=== PATIENT | female | born 1945 | race Hispanic/Latino ===

== ENCOUNTER 2017-08-04 18:08 | Inpatient (IN) | payer MEDICARE ==
[2017-08-04] MEDS ORDERED: XYLOCAINE 1% 20 mL ONE (18:59)
[2017-08-04 19:48] LABS: Basophils % (Auto) 0.3 % (0.0-1.8); Eosinophils % (Auto) 0.5 % (0.0-4.3); Hemoglobin 13.2 gm/dl (10.1-14.3); Mean Corpuscular HGB Conc 32 % (30-34); Mean Corpuscular Hemoglobin 28 pg (28-32); Mean Corpuscular Volume 87 fl (79-97); Platelet Count 216 K/mm3 (140-440); Red Blood Count 4.71 M/mm3 (3.65-5.03); Red Cell Distribution Width 15.2 % (13.2-15.2); White Blood Count 14.1 K/mm3 (4.5-11.0)
[2017-08-04 20:07] LABS: Bilirubin,Total 4.2 mg/dL (0.1-1.2); Calcium 9.2 mg/dL (8.4-10.2); Total Protein 7.2 g/dL (6.3-8.2)
[2017-08-04 20:08] LABS: Albumin 4.1 g/dL (3.9-5); Albumin/Globulin Ratio 1.3 %; Chloride 98.2 mmol/L (98-107); Potassium 3.6 mmol/L (3.6-5.0)
--- NOTE | 2017-08-04 20:18 | Emergency Department Report ---
ED General Adult HPI - General Chief complaint: Abdominal Pain Stated complaint: ABD PAIN Time Seen by Provider: 08/04/17 19:05 Source: patient, family, EMS Mode of arrival: Stretcher Limitations: Physical Limitation - History of Present Illness Initial comments: Patient is a 71-year-old female status post lap band surgery presents with abdominal pain. Patient states abdominal pain occurred today. She states it's generalized and has progressively gotten worse. She also states that she has had some nausea and vomiting and also she had some lightheadedness. Patient states that abdominal pain is a 8 out 10 is an achy type of pain nothing makes it better or worse. She states it radiates throughout her belly. She denies having any chest pain or any shortness of breath. She called Dr. Hardin who did her lap band surgery he is currently at the bedside. - Related Data Home Medications Medication Instructions Recorded Confirmed Last Taken Apixaban [Eliquis] 5 mg PO Q12H 08/04/17 08/04/17 Unknown Benazepril HCl [Lotensin] 20 mg PO QDAY 08/04/17 08/04/17 Unknown Doxycycline [Vibramycin CAP] 100 mg PO Q12H 08/04/17 08/04/17 Unknown Duloxetine HCl [Cymbalta] 120 mg PO QDAY 08/04/17 08/04/17 Unknown HYDROcodone/APAP 10-325 [[place] 1 tab PO QDAY 08/04/17 08/04/17 Unknown 10-325 mg TAB] Hydrocortisone 1% [Hydrocortisone 1 applicatio TRANSDERMA PRN 08/04/17 08/04/17 Unknown 1% CREAM] Hydroxychloroquine [Plaquenil] 2 tab PO QHS 08/04/17 08/04/17 Unknown Metoprolol Xl [Metoprolol 50 mg PO QDAY 08/04/17 08/04/17 Unknown SUCCINATE ER TAB] Oxycodone HCl/Acetaminophen 1 - 2 tab PO Q4H PRN 08/04/17 08/04/17 Unknown [Percocet 10/325 mg] Tizanidine HCl [Zanaflex] 4 mg PO QHS PRN 08/04/17 08/04/17 Unknown traZODone [Desyrel] 100 mg PO QHS 08/04/17 08/04/17 Unknown Allergies Allergy/AdvReac Type Severity Reaction Status Date / Time cephalexin [From Keflex] Allergy Unknown Verified 08/04/17 19:00 ED Review of Systems ROS: Stated complaint: ABD PAIN Other details as noted in HPI Constitutional: denies: chills, fever Eyes: denies: eye pain, eye discharge, vision change ENT: denies: ear pain, throat pain Respiratory: denies: cough, shortness of breath, wheezing Cardiovascular: denies: chest pain, palpitations Endocrine: no symptoms reported Gastrointestinal: abdominal pain, nausea, vomiting. denies: diarrhea Genitourinary: denies: urgency, dysuria, discharge Musculoskeletal: denies: back pain, joint swelling, arthralgia Skin: denies: rash, lesions Neurological: weakness, other (lightheadedness ). denies: headache, paresthesias Psychiatric: denies: anxiety, depression Hematological/Lymphatic: denies: easy bleeding, easy bruising ED Past Medical Hx - Past Medical History Additional medical history: shoulder, hip replacement - Social History Smoking Status: Never Smoker - Medications Home Medications: Home Medications Medication Instructions Recorded Confirmed Last Taken Type Apixaban [Eliquis] 5 mg PO Q12H 08/04/17 08/04/17 Unknown History Benazepril HCl [Lotensin] 20 mg PO QDAY 08/04/17 08/04/17 Unknown History Doxycycline [Vibramycin CAP] 100 mg PO Q12H 08/04/17 08/04/17 Unknown History Duloxetine HCl [Cymbalta] 120 mg PO QDAY 08/04/17 08/04/17 Unknown History HYDROcodone/APAP 10-325 [[place] 1 tab PO QDAY 08/04/17 08/04/17 Unknown History 10-325 mg TAB] Hydrocortisone 1% [Hydrocortisone 1 applicatio TRANSDERMA PRN 08/04/17 08/04/17 Unknown History 1% CREAM] Hydroxychloroquine [Plaquenil] 2 tab PO QHS 08/04/17 08/04/17 Unknown History Metoprolol Xl [Metoprolol 50 mg PO QDAY 08/04/17 08/04/17 Unknown History SUCCINATE ER TAB] Oxycodone HCl/Acetaminophen 1 - 2 tab PO Q4H PRN 08/04/17 08/04/17 Unknown History [Percocet 10/325 mg] Tizanidine HCl [Zanaflex] 4 mg PO QHS PRN 08/04/17 08/04/17 Unknown History traZODone [Desyrel] 100 mg PO QHS 08/04/17 08/04/17 Unknown History ED Physical Exam - General Limitations: Physical Limitation General appearance: alert, in no apparent distress - Head Head exam: Present: atraumatic, normocephalic - Eye Eye exam: Present: normal appearance - ENT ENT exam: Present: mucous membranes moist - Neck Neck exam: Present: normal inspection - Respiratory Respiratory exam: Present: normal lung sounds bilaterally. Absent: respiratory distress - Cardiovascular Cardiovascular Exam: Present: regular rate, normal rhythm. Absent: systolic murmur, diastolic murmur, rubs, gallop - GI/Abdominal GI/Abdominal exam: Present: tenderness, hypoactive bowel sounds, other ( distended ) - Extremities Exam Extremities exam: Present: normal inspection - Back Exam Back exam: Present: normal inspection - Neurological Exam Neurological exam: Present: alert, oriented X3 - Psychiatric Psychiatric exam: Present: normal affect, normal mood - Skin Skin exam: Present: warm, dry, intact, normal color. Absent: rash ED Course Vital Signs 08/04/17 08/04/17 19:15 21:48 Temperature 99 F Pulse Rate 79 Respiratory 18 20 Rate Blood Pressure 127/51 [Left] O2 Sat by Pulse 100 Oximetry - Reevaluation(s) Reevaluation #1: 08/05/17 01:46 Patient is feeling better after IV pain medication. - Consultations Consultation #1: 08/04/17 18:31 is at bedside and is draining patient's lap band. Consultation #2: 08/05/17 01:32 Received a call from she states that she will see the patient in the morning and patient will need an inital 2 liter bolus of fluids and an ultrasound of her gallbladder in the morning. ED Medical Decision Making - Lab Data Result diagrams: 08/04/17 19:01 08/04/17 19:01 Lab Results 08/04/17 08/04/17 08/04/17 Range/Units 19:01 19:01 20:08 WBC 14.1 H (4.5-11.0) K/mm3 RBC 4.71 (3.65-5.03) M/mm3 Hgb 13.2 (10.1-14.3) gm/dl Hct 41.0 (30.3-42.9) % MCV 87 (79-97) fl MCH 28 (28-32) pg MCHC 32 (30-34) % RDW 15.2 (13.2-15.2) % Plt Count 216 (140-440) K/mm3 Lymph % (Auto) 4.9 L (13.4-35.0) % [place] % (Auto) 5.9 (0.0-7.3) % Eos % (Auto) 0.5 (0.0-4.3) % Baso % (Auto) 0.3 (0.0-1.8) % Lymph # 0.7 L (1.2-5.4) K/mm3 [place] # 0.8 (0.0-0.8) K/mm3 Eos # 0.1 (0.0-0.4) K/mm3 Baso # 0.0 (0.0-0.1) K/mm3 Seg Neutrophils % 88.4 H (40.0-70.0) % Seg Neutrophils # 12.5 H (1.8-7.7) K/mm3 Sodium 140 (137-145) mmol/L Potassium 3.6 (3.6-5.0) mmol/L Chloride 98.2 (98-107) mmol/L Carbon Dioxide 22 (22-30) mmol/L Anion Gap 23 mmol/L BUN 26 H (7-17) mg/dL Creatinine 1.3 H (0.7-1.2) mg/dL Estimated GFR 40 ml/min BUN/Creatinine Ratio 20 % Glucose 125 H (65-100) mg/dL Calcium 9.2 (8.4-10.2) mg/dL Total Bilirubin 4.20 H (0.1-1.2) mg/dL AST 327 H (5-40) units/L ALT 337 H (7-56) units/L Alkaline Phosphatase 204 H (35-129) units/L Total Protein 7.2 (6.3-8.2) g/dL Albumin 4.1 (3.9-5) g/dL Albumin/Globulin Ratio 1.3 % Lipase 2972 H (13-60) units/L Urine Color [place] (Yellow) Urine Turbidity Clear (Clear) Urine pH 5.0 (5.0-7.0) Ur Specific [place] 1.013 (1.003-1.030) Urine Protein 100 mg/dl (Negative) mg/dL Urine Glucose (UA) 50 (Negative) mg/dL Urine Ketones Neg (Negative) mg/dL Urine Blood Sm (Negative) Urine Nitrite Neg (Negative) Urine Bilirubin Neg (Negative) Urine Urobilinogen 4.0 (<2.0) mg/dL Ur Leukocyte Esterase Neg (Negative) Urine WBC (Auto) 7.0 H (0.0-6.0) /HPF Urine RBC (Auto) 2.0 (0.0-6.0) /HPF U Epithel Cells (Auto) 5.0 (0-13.0) /HPF Urine Bacteria (Auto) 4+ (Negative) /HPF Urine Mucus Few /HPF - Radiology Data Radiology results: report reviewed, image reviewed CT scan abdomen with oral contrast: The gallbladder is distended the sandy thickened there is pericholecystic fluid no stones are seen a calculus cholecystitis is suspected - Medical Decision Making Chief medical diagnosis: Cholecystitis Differential multiple diagnosis: Cholangitis, choledocholithiasis Ruptured viscus, pancreatitis, small bowel adhesion, ruptured lap band I will get CT scan with oral contrast, CBC, CMP, lipase, total bilirubin, IV fluids, IV antibiotics, IV pain medication, IV antiemetics CT scan is significant for a calculus cholecystitis I will place patient on IV antibiotics and IV fluids. Patient will be admitted to the hospital service. Patient will also require an ultrasound in the morning of her gallbladder. Since laboratory work is significant for elevated lipase which is significant for gallstone pancreatitis. Discussed with Dr. Melara she will see the patient the morning and see if patient needs any possible surgical intervention. Discussed plan with patient and patient agrees with plan Critical care attestation.: If time is entered above; I have spent that time in minutes in the direct care of this critically ill patient, excluding procedure time. ED Disposition Clinical Impression: Acalculous cholecystitis, Generalized abdominal pain, Acute gallstone pancreatitis Nausea and vomiting Qualifiers: Vomiting type: unspecified Vomiting Intractability: non-intractable Qualified Code(s): R11.2 - Nausea with vomiting, unspecified Disposition: OP ADMIT IP TO THIS HOSP Is pt being admited?: No Does the pt Need Aspirin: No Condition: Stable Instructions: Abdominal Pain (ED) Referrals: PRIMARY CARE, [Primary Care Provider] - 3-5 Days
[2017-08-04 20:21] LABS: Bacteria,Urine 4+ /HPF (Negative); Bilirubin,Urine NEG (Negative); Blood,Urine SM (Negative); Ketones,Urine NEG (Negative); Leukocyte Esterase,Urine NEG (Negative); Mucus,Urine FEW /HPF; Nitrite,Urine NEG (Negative)
[2017-08-04] MEDS ORDERED: ZOFRAN ODT PO ONE (20:45)
[2017-08-04] MEDS ORDERED: SUBLIMAZE IV ONE (21:21)
[2017-08-04] MEDS ORDERED: MORPHINE IV ONE (22:47)
[2017-08-04] MEDS ORDERED: MORPHINE ONE (22:54)
[2017-08-04] MEDS ORDERED: NACL 0.9% 1000 ML 1,000 ML IV ONE ×2 (23:04)
--- NOTE | 2017-08-04 23:48 | Cat Scan Report ---
FINAL REPORT PROCEDURE: CT ABDOMEN PELVIS WO CON TECHNIQUE: Computerized axial tomography of the abdomen and pelvis was performed without intravenous contrast. This study is performed without intravascular contrast material and its sensitivity for abdominal and pelvic pathology, including neoplasms, inflammation, abscess, free fluid, thrombosis, arterial dissection and infarction, is reduced compared with a contrast enhanced study. HISTORY: Generalized abd pain COMPARISON: 01/17/2016 FINDINGS: Visualized lower thorax: No significant abnormality. Liver: Normal size and attenuation. Spleen: Normal size and attenuation. Gallbladder and biliary system: The gallbladder is distended. The wall is thickened. There is pericholecystic fluid. No stones are seen. Acalculous cholecystitis is suspected.. Pancreas: There is peripancreatic edema suggesting possible pancreatitis. There is no intrinsic mass, abscess or pseudocyst.. Adrenals: Normal. Kidneys: There are no kidney stones or ureteral stones. There is no hydronephrosis.. GI tract: There is a constriction band at the gastroesophageal junction. There is mucosal thickening of the descending and transverse duodenum which could be secondary to pancreatitis. There is no obstruction. The colon and appendix are normal.. Lymph nodes and mesentery: Normal. Vasculature: Normal. Bladder: Normal. Reproductive organs: Uterus and ovaries are unremarkable.. Peritoneum: There is minimal free pelvic fluid. There is no free air.. Musculoskeletal structures: There is hip replacement hardware on the left.. Other: There has been ventral hernia repair surgery.. IMPRESSION: The gallbladder is distended. The wall is thickened. There is pericholecystic fluid. No stones are seen. Acalculous cholecystitis is suspected.. There is peripancreatic edema suggesting possible pancreatitis. There is no intrinsic mass, abscess or pseudocyst.. There are no kidney stones or ureteral stones. There is no hydronephrosis.. There is a constriction band at the gastroesophageal junction. There is mucosal thickening of the descending and transverse duodenum which could be secondary to pancreatitis. There is no obstruction. The colon and appendix are normal.. Uterus and ovaries are unremarkable.. There is minimal free pelvic fluid. There is no free air.. .
[2017-08-05] MEDS ORDERED: ROCEPHIN/NS 2 GM/100 ML 2 GM/100 ML BAG IV ONE (00:03)
[2017-08-05] MEDS ORDERED: FLAGYL 500 MG/100 ML 500 MG/100 ML BAG IV ONE (00:27)
[2017-08-05] MEDS ORDERED: MORPHINE IV ONE (00:46)
[2017-08-05] MEDS ORDERED: MORPHINE ONE ×2 (01:02)
[2017-08-05] MEDS ORDERED: FLAGYL 500 MG/100 ML 500 MG/100 ML BAG IV SCH ×2 (02:00→06:00)
[2017-08-05] MEDS ORDERED: MILK OF MAGNESIA PO PRN (03:02)
[2017-08-05] MEDS ORDERED: DULCOLAX PR PRN (03:02)
[2017-08-05] MEDS ORDERED: MORPHINE IV PRN (03:02)
[2017-08-05] MEDS ORDERED: ZOFRAN IV PRN (03:02)
[2017-08-05] MEDS ORDERED: TYLENOL PO PRN (03:02)
[2017-08-05] MEDS ORDERED: NACL 0.45% 1000 ML 1,000 ML IV SCH (04:00)
[2017-08-05] MEDS ORDERED: ZOFRAN ONE (04:44)
--- NOTE | 2017-08-05 05:06 | History and Physical Report ---
History of Present Illness Date of examination: 08/05/17 Date of admission: 08/05/17 03:02 History of present illness: 71-year-old woman history of hypertension, chronic kidney disease, lupus, anxiety, depression, A. fib cause emergency room with complaints of abdominal pain started 2 days ago. Pain is in the epigastric area which described as a sharp, dull pain, constant, intensity 8/10, radiating bilaterally to the sides, cannot identify exacerbating factor, better with pain medication. Admits to nausea and vomiting, unable to tolerate oral intake Review Of Systems: Constitutional: no weight loss Ears, eyes, nose, mouth and throat: no nasal congestion, no nasal discharge, no sinus pressure, blurry vision, diplopia Neck: No neck pain or rigidity. Cardiovascular:NO chest pain, orthopnea, palpitations Respiratory: No shortness of breath, cough Gastrointestinal: aNO hematochezia Genitourinary : no dysuria, frequency , hematuria Musculoskeletal: no muscle ache Integumentary: no rash, no pruritis Neurological: no parathesias, focal weakness Endocrine: no cold or heat intolerance, no polyuria or polydipsia Hematologic/Lymphatic: no easy bruising, no easy bleeding, no gland swelling Allergic/Immunologic: no urticaria, no angioedema. PAST MEDICAL HISTORY:hypertension, chronic kidney disease, lupus, anxiety, depression, A. fib PAST SURGICAL HISTORY: Bilateral knee replacement, hip surgery FAMILY HISTORY: Hypertension SOCIAL HISTORY: Denies alcohol, tobacco, urine Medications and Allergies Allergies Allergy/AdvReac Type Severity Reaction Status Date / Time cephalexin [From Keflex] Allergy Unknown Verified 08/04/17 19:00 Home Medications Medication Instructions Recorded Confirmed Last Taken Type Apixaban [Eliquis] 5 mg PO Q12H 08/04/17 08/04/17 Unknown History Benazepril HCl [Lotensin] 20 mg PO QDAY 08/04/17 08/04/17 Unknown History Doxycycline [Vibramycin CAP] 100 mg PO Q12H 08/04/17 08/04/17 Unknown History Duloxetine HCl [Cymbalta] 120 mg PO QDAY 08/04/17 08/04/17 Unknown History HYDROcodone/APAP 10-325 [[place] 1 tab PO QDAY 08/04/17 08/04/17 Unknown History 10-325 mg TAB] Hydrocortisone 1% [Hydrocortisone 1 applicatio TRANSDERMA PRN 08/04/17 08/04/17 Unknown History 1% CREAM] Hydroxychloroquine [Plaquenil] 2 tab PO QHS 08/04/17 08/04/17 Unknown History Metoprolol Xl [Metoprolol 50 mg PO QDAY 08/04/17 08/04/17 Unknown History SUCCINATE ER TAB] Oxycodone HCl/Acetaminophen 1 - 2 tab PO Q4H PRN 08/04/17 08/04/17 Unknown History [Percocet 10/325 mg] Tizanidine HCl [Zanaflex] 4 mg PO QHS PRN 08/04/17 08/04/17 Unknown History traZODone [Desyrel] 100 mg PO QHS 08/04/17 08/04/17 Unknown History Active Meds: Active Medications Acetaminophen (Tylenol) 650 mg PO Q4H PRN PRN Reason: Pain MILD(1-3)/Fever >100.5/CHAVEZ Bisacodyl (Dulcolax) 10 mg PA QDAY PRN PRN Reason: Constipation unrelieved by [facility] Metronidazole (Flagyl 500 Mg/100 Ml) 500 mg in 100 mls @ 100 mls/hr IV Q6H [facility] Last Admin: 08/05/17 02:00 Dose: 100 mls/hr Sodium Chloride (Nacl 0.45% 1000 Ml) 1,000 mls @ 75 mls/hr IV DIRECT SHARAN Ceftriaxone Sodium (Rocephin/Ns 1 Gm/50 Ml) 1 gm in 50 mls @ 100 mls/hr IV Q24H SHARAN PRN Reason: Protocol Magnesium Hydroxide (Milk Of Magnesia) 30 ml PO Q4H PRN PRN Reason: Constipation Morphine Sulfate (Morphine) 2 mg IV Q4H PRN PRN Reason: Pain, Moderate (4-6) Ondansetron HCl (Zofran) 4 mg IV Q8H PRN PRN Reason: N/V unrelieved by Reglan Exam - Physical Exam Narrative exam: Gen. appearance: Patient lying in bed in no acute distress HEENT: Normocephalic/atraumatic, pupils equal round reactive to light, extra alkaline movement intact, no scleral icterus, no JVD or thyromegaly or nodule, neck is supple, mucous membrane moist, no erythema or exudate Heart: S1-S2, regular rate and rhythm Lungs: Clear to auscultation bilateral breathing comfortable Abdomen: Positive bowel sounds, tender in right upper quadrant and epigastric area, nondistended, no organomegaly Extremities: No edema, cyanosis, clubbing Neuro:: Oriented 3 , cranial nerves II-12 intact, speech, motor intact Skin: No rash, nodules, warm dry - Constitutional Vitals: Temp Pulse Resp BP Pulse Ox 99 F 79 19 128/57 95 08/04/17 19:15 08/05/17 04:00 08/05/17 04:00 08/05/17 04:00 08/05/17 04:00 Results - Labs CBC & Chem 7: 08/04/17 19:01 08/04/17 19:01 - Imaging and Cardiology CT scan - abdomen: report reviewed CT scan - pelvis: report reviewed Assessment and Plan Assessment Acute cholecystitis Hypertension A. fib Anxiety Depression Chronic kidney disease Lupus Plan Admit to medicine Placed on bowel rest, start IV fluids, IV antibiotic Consult surgery HOld eliquis prior to surgery Continue appropriate outpatient medications DVT prophylaxis
[2017-08-05] MEDS: NACL 0.9% 1000 ML 1,000 ML IV SCH ×3 (09:07→20:03)
[2017-08-05] MEDS: TOPROL XL PO SCH (09:09)
[2017-08-05] MEDS: CYMBALTA PO SCH (09:09)
--- NOTE | 2017-08-05 09:17 | Consultation ---
History of Present Illness Consult date: 08/05/17 Reason for consult: abdominal pain Chief complaint: abdominal pain - History of present illness History of present illness: 71 y/o obese female with a history of lap band, ventral hernia repair presents to emergency room with c/o epigastric abdominal pain that started 2 days prior. The patient states the pain is severe, radiates across the abdomen. It is exacerbated by drinking and eating. The pain has gradually gotten worse. It was associated with nonbloody/nonbilious emesis which has since improved. She denies constipation, diarrhea, fevers, chills, CP, SOB. She has never had symptoms like this before. Her lap band was recently assessed by Dr. Galvez and all fluid removed. She does not drink etoh and has not had recent medication changes. Past History Past Medical History: atrial fib, arthritis, CAD, hypertension, other (obesity, sleep apnea, LUpus) Past Surgical History: hernia repair, total hip replacement (left), total knee replacement (bilateral), Other (tubal ligation, lap band) Social history: no significant social history Family history: CAD, cancer, hypertension Medications and Allergies Allergies Allergy/AdvReac Type Severity Reaction Status Date / Time cephalexin [From Keflex] Allergy Unknown Verified 08/04/17 19:00 Home Medications Medication Instructions Recorded Confirmed Last Taken Type Apixaban [Eliquis] 5 mg PO Q12H 08/04/17 08/04/17 Unknown History Benazepril HCl [Lotensin] 20 mg PO QDAY 08/04/17 08/04/17 Unknown History Doxycycline [Vibramycin CAP] 100 mg PO Q12H 08/04/17 08/04/17 Unknown History Duloxetine HCl [Cymbalta] 120 mg PO QDAY 08/04/17 08/04/17 Unknown History HYDROcodone/APAP 10-325 [[place] 1 tab PO QDAY 08/04/17 08/04/17 Unknown History 10-325 mg TAB] Hydrocortisone 1% [Hydrocortisone 1 applicatio TRANSDERMA PRN 08/04/17 08/04/17 Unknown History 1% CREAM] Hydroxychloroquine [Plaquenil] 2 tab PO QHS 08/04/17 08/04/17 Unknown History Metoprolol Xl [Metoprolol 50 mg PO QDAY 08/04/17 08/04/17 Unknown History SUCCINATE ER TAB] Oxycodone HCl/Acetaminophen 1 - 2 tab PO Q4H PRN 08/04/17 08/04/17 Unknown History [Percocet 10/325 mg] Tizanidine HCl [Zanaflex] 4 mg PO QHS PRN 08/04/17 08/04/17 Unknown History traZODone [Desyrel] 100 mg PO QHS 08/04/17 08/04/17 Unknown History Active Meds: Active Medications Acetaminophen (Tylenol) 650 mg PO Q4H PRN PRN Reason: Pain MILD(1-3)/Fever >100.5/CHAVEZ Duloxetine HCl (Cymbalta) 120 mg PO QDAY ON LICENSE OF [facility] Last Admin: 08/05/17 09:09 Dose: Not Given Hydroxychloroquine Sulfate (Plaquenil) 400 mg PO QHS ON LICENSE OF [facility] Sodium Chloride (Nacl 0.9% 1000 Ml) 1,000 mls @ 200 mls/hr IV DIRECT ON LICENSE OF [facility] Last Admin: 08/05/17 09:07 Dose: 200 mls/hr Piperacillin Sod/Tazobactam Sod (Zosyn/Ns 3.375gm/50ml) 3.375 gm in 50 mls @ 100 mls/hr IV Q8HR ON LICENSE OF [facility] PRN Reason: Protocol Magnesium Hydroxide (Milk Of Magnesia) 30 ml PO Q4H PRN PRN Reason: Constipation Metoprolol Succinate (Toprol Xl) 50 mg PO QDAY ON LICENSE OF [facility] Last Admin: 08/05/17 09:09 Dose: Not Given Morphine Sulfate (Morphine) 2 mg IV Q4H PRN PRN Reason: Pain, Moderate (4-6) Last Admin: 08/05/17 06:12 Dose: 2 mg Ondansetron HCl (Zofran) 4 mg IV Q8H PRN PRN Reason: N/V unrelieved by Reglan Last Admin: 08/05/17 04:40 Dose: 4 mg Review of Systems All systems: negative (see HPI) Exam Vital Signs Temp Pulse Resp BP Pulse Ox 99 F 79 18 127/51 100 08/04/17 19:15 08/04/17 19:15 08/04/17 19:15 08/04/17 19:15 08/04/17 19:15 Narrative exam: General: AAOx3. NAD HEENT: no scleral icterus CV: S1, S2+, no m/r/g Resp: CTAB, no w/r/r Abd: soft, obese, ND. +ttp greatest in epigastrum, +ttp in ruq. No r/r/g. well healed surgical scars Ext: trace b/l LE pedal edema Results - Labs 08/04/17 19:01 08/04/17 19:01 - Imaging CT scan - abdomen: report reviewed (Pancreatitis, distended and thickened gallbladder with pericholecystic fluid), image reviewed CT scan - pelvis: report reviewed, image reviewed Assessment and Plan 71 yo F with pancreatitis, most likely secondary to gallbladder 1. pancreatitis 2. cholecystitis 3. obesity 4. Afib 5. sleep apnea Plan: 1. Pt admitted to medical service 2. needs aggressive IVF hydration - change fluid to NS@200cc/hr 3. NPO -> may have mouth swabs 4. STAT CBC, CMP, lipase, amylase -> trend labs daily 5. STAT RUQ u/s 6. activity as tolerated 7. pain control PRN - morphine 8. change abx to zosyn 9. STOP eliquis - last dose 08/04 AM 10. strict I/Os 11. Consult to cardiology for hx afib, preop risk assessment 12. Consult to GI for likely gallstone pancreatitis 13. DVT ppx - SQH (to start tonight) and SCDs 14. Activity as tolerated 15. PICC consult - inadequate IV access and hard IV stick, will need serial labs
[2017-08-05] MEDS ORDERED: ELIQUIS PO SCH (10:00)
[2017-08-05] MEDS ORDERED: NON-FORMULARY (Duloxetine Hcl [Cymbalta] 120 MG) PO SCH (10:00)
[2017-08-05] MEDS ORDERED: LEVAQUIN 750MG/150ML 750 MG/150 ML BAG IV SCH (10:00)
[2017-08-05 10:49] LABS: Basophils % (Auto) 0.4 % (0.0-1.8); Eosinophils % (Auto) 0.6 % (0.0-4.3); Hematocrit 33.8 % (30.3-42.9); Hemoglobin 11.6 gm/dl (10.1-14.3); Mean Corpuscular HGB Conc 34 % (30-34); Mean Corpuscular Hemoglobin 29 pg (28-32); Mean Corpuscular Volume 86 fl (79-97); Platelet Count 152 K/mm3 (140-440); Red Blood Count 3.95 M/mm3 (3.65-5.03); Red Cell Distribution Width 15.2 % (13.2-15.2); White Blood Count 8.2 K/mm3 (4.5-11.0)
[2017-08-05] MEDS: MORPHINE IV PRN ×2 (10:54→17:38)
[2017-08-05] MEDS: ZOSYN/NS 3.375GM/50ML 3.375 GM/50 ML BAG IV SCH ×3 (11:23→21:49)
[2017-08-05 11:24] LABS: Albumin 3.3 g/dL (3.9-5); Albumin/Globulin Ratio 1.1 %; Bilirubin,Total 3.9 mg/dL (0.1-1.2); Calcium 8.3 mg/dL (8.4-10.2); Chloride 106.1 mmol/L (98-107); Potassium 4.3 mmol/L (3.6-5.0); Total Protein 6.3 g/dL (6.3-8.2)
[2017-08-05 11:26] LABS: Bilirubin,Direct 3.4 mg/dL (0-0.2); Bilirubin,Indirect 0.5 mg/dL; Bilirubin,Total 3.9 mg/dL (0.1-1.2)
--- NOTE | 2017-08-05 11:30 | Consultation ---
History of Present Illness Consult date: 08/05/17 Requesting physician: YARITZA COLE Consult reason: pre op evaluation History of present illness: The patient is followed by Dr. Laird in our office. She has a history of moderate aortic stenosis and paroxysmal atrial fibrillation as well as nonobstructive coronary disease. In November 2016, coronary angiography revealed mild nonobstructive CAD. In March 2017, she underwent a lap band procedure. Three days ago, she started experiencing nausea, vomiting and abdominal pain. She claims that on the first day of symptoms, she also experienced a lower substernal chest pain for a while. CT scan of the abdomen revealed findings suggestive of cholecystitis and pancreatitis. LFTs and lipase are significantly elevated. Past History Past Medical History: atrial fib (paroxysmal), CAD (mild nonobstructive documented on coronary angiography in November 2016), hypertension, other ( morbid obesity, obstructive sleep apnea lupus, moderate aortic stenosis, normal LV systolic function on echocardiogram earlier dysuria.) Past Surgical History: hernia repair, total hip replacement, total knee replacement (bilateral), Other (tubal ligation, lap band) Social history: denies: smoking, alcohol abuse Family history: CAD, cancer, hypertension Medications and Allergies Allergies Allergy/AdvReac Type Severity Reaction Status Date / Time cephalexin [From Keflex] Allergy Unknown Verified 08/04/17 19:00 Home Medications Medication Instructions Recorded Confirmed Last Taken Type Apixaban [Eliquis] 5 mg PO Q12H 08/04/17 08/04/17 Unknown History Benazepril HCl [Lotensin] 20 mg PO QDAY 08/04/17 08/04/17 Unknown History Doxycycline [Vibramycin CAP] 100 mg PO Q12H 08/04/17 08/04/17 Unknown History Duloxetine HCl [Cymbalta] 120 mg PO QDAY 08/04/17 08/04/17 Unknown History HYDROcodone/APAP 10-325 [Benoit 1 tab PO QDAY 08/04/17 08/04/17 Unknown History 10-325 mg TAB] Hydrocortisone 1% [Hydrocortisone 1 applicatio TRANSDERMA PRN 08/04/17 08/04/17 Unknown History 1% CREAM] Hydroxychloroquine [Plaquenil] 2 tab PO QHS 08/04/17 08/04/17 Unknown History Metoprolol Xl [Metoprolol 50 mg PO QDAY 08/04/17 08/04/17 Unknown History SUCCINATE ER TAB] Oxycodone HCl/Acetaminophen 1 - 2 tab PO Q4H PRN 08/04/17 08/04/17 Unknown History [Percocet 10/325 mg] Tizanidine HCl [Zanaflex] 4 mg PO QHS PRN 08/04/17 08/04/17 Unknown History traZODone [Desyrel] 100 mg PO QHS 08/04/17 08/04/17 Unknown History Active Meds: Active Medications Acetaminophen (Tylenol) 650 mg PO Q4H PRN PRN Reason: Pain MILD(1-3)/Fever >100.5/CHAVEZ Duloxetine HCl (Cymbalta) 120 mg PO QDAY [facility] Last Admin: 08/05/17 09:09 Dose: Not Given Heparin Sodium (Porcine) (Heparin) 5,000 unit SUB-Q Q8HR [facility] Hydroxychloroquine Sulfate (Plaquenil) 400 mg PO QHS [facility] Sodium Chloride (Nacl 0.9% 1000 Ml) 1,000 mls @ 200 mls/hr IV DIRECT [facility] Last Admin: 08/05/17 09:07 Dose: 200 mls/hr Piperacillin Sod/Tazobactam Sod (Zosyn/Ns 3.375gm/50ml) 3.375 gm in 50 mls @ 100 mls/hr IV Q8HR [facility] PRN Reason: Protocol Magnesium Hydroxide (Milk Of Magnesia) 30 ml PO Q4H PRN PRN Reason: Constipation Metoprolol Succinate (Toprol Xl) 50 mg PO QDAY [facility] Last Admin: 08/05/17 09:09 Dose: Not Given Morphine Sulfate (Morphine) 2 mg IV Q3H PRN PRN Reason: Pain, Moderate (4-6) Last Admin: 08/05/17 10:54 Dose: 2 mg Ondansetron HCl (Zofran) 4 mg IV Q8H PRN PRN Reason: N/V unrelieved by Regamber Last Admin: 08/05/17 04:40 Dose: 4 mg Review of Systems Constitutional: no fever, no chills Ears, nose, mouth and throat: no ear pain, no ear discharge, no sore throat Cardiovascular: no chest pain, no palpitations, no edema, no lightheadedness, no shortness of breath Respiratory: no cough, no hemoptysis, no shortness of breath Gastrointestinal: abdominal pain, nausea, vomiting, no diarrhea, no constipation Genitourinary Female: dysuria, urinary frequency Rectal: no pain, no bleeding Musculoskeletal: no neck stiffness, no neck pain, no myalgias Integumentary: no rash, no pruritis Neurological: no weakness, no parathesias, no numbness, no headaches Endocrine: no cold intolerance, no heat intolerance Hematologic/Lymphatic: no easy bruising, no easy bleeding Allergic/Immunologic: no urticaria, no wheezing Physical Examination Vital Signs Last Vital Signs Temp 98.8 F 08/05/17 07:04 Pulse 80 08/05/17 07:04 Resp 16 08/05/17 07:04 BP 138/57 08/05/17 07:04 Pulse Ox 96 08/05/17 10:00 General appearance: mild distress HEENT: Positive: EOMI, Normocephaly, Mucus Membranes Moist Neck: Positive: neck supple, trachea midline Cardiac: Positive: Reg Rate and Rhythm, S1/S2, Systolic Murmur Lungs: Positive: clear to auscultation Neuro: Positive: Grossly Intact Abdomen: Positive: Soft, Active Bowel Sounds, Tender Skin: Positive: Clear. Negative: Rash Musculoskeletal: Normal Range of Motion Extremities: Present: normal. Absent: edema Results 08/05/17 10:26 08/05/17 10:26 Cardiac Enzymes 08/05/17 Range/Units 10: AST 194 H (5-40) units/L CBC 08/05/17 Range/Units 10:26 WBC 8.2 (4.5-11.0) K/mm3 RBC 3.95 (3.65-5.03) M/mm3 Hgb 11.6 (10.1-14.3) gm/dl Hct 33.8 D (30.3-42.9) % Plt Count 152 (140-440) K/mm3 Lymph # 0.9 L (1.2-5.4) K/mm3 [place] # 0.6 (0.0-0.8) K/mm3 Eos # 0.1 (0.0-0.4) K/mm3 Baso # 0.0 (0.0-0.1) K/mm3 Comprehensive Metabolic Panel 08/05/17 Range/Units 10:26 Sodium 145 (137-145) mmol/L Potassium 4.3 (3.6-5.0) mmol/L Chloride 106.1 (98-107) mmol/L Carbon Dioxide 22 (22-30) mmol/L BUN 30 H (7-17) mg/dL Creatinine 1.6 H (0.7-1.2) mg/dL Glucose 115 H (65-100) mg/dL Calcium 8.3 L (8.4-10.2) mg/dL AST 194 H (5-40) units/L ALT 269 H (7-56) units/L Alkaline Phosphatase 178 H (35-129) units/L Total Protein 6.3 (6.3-8.2) g/dL Albumin 3.3 L (3.9-5) g/dL - Imaging and Cardiology EKG: pending Assessment and Plan Her cardiac surgical risk is moderately increased due to her comorbid and underlying cardiac diseases. However, she appears stable from a cardiac standpoint to proceed with cholecystectomy if necessary. - Patient Problems (1) Preop cardiovascular exam Current Visit: Yes Status: Acute (2) Acute pancreatitis Current Visit: Yes Status: Acute Qualifiers: Pancreatitis type: P Acute pancreatitis complication: A (3) Acalculous cholecystitis Current Visit: Yes Status: Acute (4) Aortic stenosis, moderate Current Visit: Yes Status: Acute (5) Mild coronary artery disease Current Visit: Yes Status: Acute (6) Hypertension Current Visit: Yes Status: Acute Qualifiers: Hypertension type: H (7) Paroxysmal atrial fibrillation Current Visit: Yes Status: Acute (8) Obstructive sleep apnea Current Visit: Yes Status: Acute (9) H/O systemic lupus erythematosus (SLE) Current Visit: Yes Status: Acute (10) Morbid obesity Current Visit: Yes Status: Acute
--- NOTE | 2017-08-05 11:43 | Gastroenterology Consultation ---
<MARIA G MOSS - Last Filed: 08/05/17 12:01> History of Present Illness - Reason for Consult Consult date: 08/05/17 possible gallstone pancreatitis Requesting physician: JOSE E WU - History of Present Illness Patient is a 71 y/o female with PMH of HTN, CKD, lupus, A-fib (last dose of Eliquis 07/25/17), CAD, aortic stenosis, obesity, and recent lap band (assessed by Dr. Galvez recently with all fluid removed) who presented to the ER with c/o epigastric abd pain that radiate across her abdomen and N/V with symptoms exacerbated by drinking or eating x 2 days. On admission LFTs and lipase were noted to be significantly elevated. Abd CT revealed cholecystitis and pancreatitis. GI has been consulted for possible gallstone pancreatitis. Abd U/ S results are pending. This am pt resting in bed. Family at bedside. Patient denies any previous episodes like this before. No ETOH use or hx of liver disease. She described abd pain as predominately in epigastric area that radiates to RUQ and LUQ. She continues to have episodes of N/V with non-bloody emesis this am. Denies fever, CP, SOB, jaundice, diarrhea, constipation, or signs of bleeding. Past History Past Medical History: atrial fib (paroxysmal), CAD (mild nonobstructive documented on coronary angiography in November 2016), hypertension, other ( morbid obesity, obstructive sleep apnea lupus, moderate aortic stenosis, normal LV systolic function on echocardiogram earlier dysuria.) Past Surgical History: hernia repair, total hip replacement, total knee replacement (bilateral), Other (tubal ligation, lap band) Social history: denies: smoking, alcohol abuse Family history: CAD, cancer, hypertension Medications and Allergies Allergies Allergy/AdvReac Type Severity Reaction Status Date / Time cephalexin [From Keflex] Allergy Unknown Verified 08/04/17 19:00 Home Medications Medication Instructions Recorded Confirmed Last Taken Type Apixaban [Eliquis] 5 mg PO Q12H 08/04/17 08/04/17 Unknown History Benazepril HCl [Lotensin] 20 mg PO QDAY 08/04/17 08/04/17 Unknown History Doxycycline [Vibramycin CAP] 100 mg PO Q12H 08/04/17 08/04/17 Unknown History Duloxetine HCl [Cymbalta] 120 mg PO QDAY 08/04/17 08/04/17 Unknown History HYDROcodone/APAP 10-325 [Bath 1 tab PO QDAY 08/04/17 08/04/17 Unknown History 10-325 mg TAB] Hydrocortisone 1% [Hydrocortisone 1 applicatio TRANSDERMA PRN 08/04/17 08/04/17 Unknown History 1% CREAM] Hydroxychloroquine [Plaquenil] 2 tab PO QHS 08/04/17 08/04/17 Unknown History Metoprolol Xl [Metoprolol 50 mg PO QDAY 08/04/17 08/04/17 Unknown History SUCCINATE ER TAB] Oxycodone HCl/Acetaminophen 1 - 2 tab PO Q4H PRN 08/04/17 08/04/17 Unknown History [Percocet 10/325 mg] Tizanidine HCl [Zanaflex] 4 mg PO QHS PRN 08/04/17 08/04/17 Unknown History traZODone [Desyrel] 100 mg PO QHS 08/04/17 08/04/17 Unknown History Active Meds: Active Medications Acetaminophen (Tylenol) 650 mg PO Q4H PRN PRN Reason: Pain MILD(1-3)/Fever >100.5/CHAVEZ Duloxetine HCl (Cymbalta) 120 mg PO QDAY [facility] Last Admin: 08/05/17 09:09 Dose: Not Given Heparin Sodium (Porcine) (Heparin) 5,000 unit SUB-Q Q8HR [facility] Hydroxychloroquine Sulfate (Plaquenil) 400 mg PO QHS [facility] Sodium Chloride (Nacl 0.9% 1000 Ml) 1,000 mls @ 200 mls/hr IV DIRECT [facility] Last Admin: 08/05/17 09:07 Dose: 200 mls/hr Piperacillin Sod/Tazobactam Sod (Zosyn/Ns 3.375gm/50ml) 3.375 gm in 50 mls @ 100 mls/hr IV Q8HR [facility] PRN Reason: Protocol Last Admin: 08/05/17 11:23 Dose: 100 mls/hr Magnesium Hydroxide (Milk Of Magnesia) 30 ml PO Q4H PRN PRN Reason: Constipation Metoprolol Succinate (Toprol Xl) 50 mg PO QDAY [facility] Last Admin: 08/05/17 09:09 Dose: Not Given Morphine Sulfate (Morphine) 2 mg IV Q3H PRN PRN Reason: Pain, Moderate (4-6) Last Admin: 08/05/17 10:54 Dose: 2 mg Ondansetron HCl (Zofran) 4 mg IV Q8H PRN PRN Reason: N/V unrelieved by Mike Last Admin: 08/05/17 04:40 Dose: 4 mg Review of Systems - Review of Systems All systems: negative Gastrointestinal: abdominal pain, nausea, vomiting Exam - Constitutional Vital Signs: Temp Pulse Resp BP Pulse Ox 98.8 F 80 16 138/57 96 08/05/17 07:04 08/05/17 07:04 08/05/17 07:04 08/05/17 07:04 08/05/17 10:00 General appearance: mild distress, obese - EENT Eyes: PERRL, EOM intact ENT: hearing intact - Respiratory Respiratory: bilateral: CTA (anterior) - Cardiovascular Rhythm: regular Heart Sounds: Present: S1 & S2 Extremities: No edema - Gastrointestinal General gastrointestinal: Present: soft, tender (generalized TTP but worse in epigastric/RUQ/LUQ) - Integumentary Integumentary: Present: warm, dry - Neurologic Neurological: alert and oriented x3 - Labs CBC & Chem 7: 08/05/17 10:26 08/05/17 10:26 Lab Results: Laboratory Results - last 24 hr 08/05/17 08/05/17 08/05/17 10:26 10:26 10:26 WBC 8.2 RBC 3.95 Hgb 11.6 Hct 33.8 D MCV 86 MCH 29 MCHC 34 RDW 15.2 Plt Count 152 Lymph % (Auto) 10.6 L [place] % (Auto) 7.3 Eos % (Auto) 0.6 Baso % (Auto) 0.4 Lymph # 0.9 L [place] # 0.6 Eos # 0.1 Baso # 0.0 Seg Neutrophils % 81.1 H Seg Neutrophils # 6.7 Sodium 145 Potassium 4.3 Chloride 106.1 Carbon Dioxide 22 Anion Gap 21 BUN 30 H Creatinine 1.6 H Estimated GFR 32 BUN/Creatinine Ratio 19 Glucose 115 H Calcium 8.3 L Total Bilirubin 3.90 H 3.90 H Direct Bilirubin 3.4 H Indirect Bilirubin 0.5 AST 194 H ALT 269 H Alkaline Phosphatase 178 H Total Protein 6.3 Albumin 3.3 L Albumin/Globulin Ratio 1.1 Amylase 812 H Assessment and Plan 1.possible gallstone pancreatitis 2.acute pancreatitis 3.cholecystitis 4.A-fib 5.aortic stenosis 6.obesity 7.lupus -afebrile -WBC 8.2-trended down from 14.1 yesterday -T.cynthia 3.90, AST 194, ALT 269, Alk phos 178-trending down -lipase 2972 yesterday-pending for today -abd CT revealed pancreatitis and cholecystitis -pt with no h/o ETOH use-etiology possibly 2/2 gallstone -abd U/S results -pending -will order triglyceride level -keep NPO -continue supportive care -further recommendations to follow <CHING MA R - Last Filed: 08/05/17 18:15> Medications and Allergies Active Meds: Active Medications Acetaminophen (Tylenol) 650 mg PO Q4H PRN PRN Reason: Pain MILD(1-3)/Fever >100.5/CHAVEZ Duloxetine HCl (Cymbalta) 120 mg PO QDAY [facility] Last Admin: 08/05/17 09:09 Dose: Not Given Heparin Sodium (Porcine) (Heparin) 5,000 unit SUB-Q Q8HR [facility] Hydroxychloroquine Sulfate (Plaquenil) 400 mg PO QHS [facility] Sodium Chloride (Nacl 0.9% 1000 Ml) 1,000 mls @ 200 mls/hr IV DIRECT [facility] Last Admin: 08/05/17 15:09 Dose: 200 mls/hr Piperacillin Sod/Tazobactam Sod (Zosyn/Ns 3.375gm/50ml) 3.375 gm in 50 mls @ 100 mls/hr IV Q8HR [facility] PRN Reason: Protocol Last Admin: 08/05/17 13:56 Dose: 100 mls/hr Magnesium Hydroxide (Milk Of Magnesia) 30 ml PO Q4H PRN PRN Reason: Constipation Metoprolol Succinate (Toprol Xl) 50 mg PO QDAY [facility] Last Admin: 08/05/17 09:09 Dose: Not Given Morphine Sulfate (Morphine) 2 mg IV Q3H PRN PRN Reason: Pain, Moderate (4-6) Last Admin: 08/05/17 17:38 Dose: 2 mg Ondansetron HCl (Zofran) 4 mg IV Q8H PRN PRN Reason: N/V unrelieved by Miek Last Admin: 08/05/17 04:40 Dose: 4 mg Exam - Constitutional Vital Signs: Temp Pulse Resp BP Pulse Ox 98.2 F 69 20 144/55 97 08/05/17 14:22 08/05/17 14:22 08/05/17 14:22 08/05/17 14:22 08/05/17 14:22 - Labs CBC & Chem 7: 08/05/17 10:26 08/05/17 10:26 Lab Results: Laboratory Results - last 24 hr 08/05/17 08/05/17 08/05/17 10:26 10:26 10:26 WBC 8.2 RBC 3.95 Hgb 11.6 Hct 33.8 D MCV 86 MCH 29 MCHC 34 RDW 15.2 Plt Count 152 Lymph % (Auto) 10.6 L [place] % (Auto) 7.3 Eos % (Auto) 0.6 Baso % (Auto) 0.4 Lymph # 0.9 L [place] # 0.6 Eos # 0.1 Baso # 0.0 Seg Neutrophils % 81.1 H Seg Neutrophils # 6.7 Sodium 145 Potassium 4.3 Chloride 106.1 Carbon Dioxide 22 Anion Gap 21 BUN 30 H Creatinine 1.6 H Estimated GFR 32 BUN/Creatinine Ratio 19 Glucose 115 H Calcium 8.3 L Total Bilirubin 3.90 H 3.90 H Direct Bilirubin 3.4 H Indirect Bilirubin 0.5 AST 194 H ALT 269 H Alkaline Phosphatase 178 H Total Protein 6.3 Albumin 3.3 L Albumin/Globulin Ratio 1.1 Amylase 812 H Lipase 1929 H Assessment and Plan U/S shows GB sludge, and mildly dilated CBD to 7.8 mm. Pt feels significantly better. Imp - likely gallstone pancreatitis - 70% of the time, CBD stone passes spontaneously. Rec - Will get MRCP - if unable, and pt continues to improve along with LFTs, can do CCX with IOC, and possibly subsequent ERCP. Otherwise, will need preop ERCP. Discussed with pt and daughter.
--- NOTE | 2017-08-05 14:22 | Event Note ---
Date: 08/05/17 Patient was seen and evaluated this morning, No fever, abdominal pain is getting better. No fever,chills, patient is NPO. Surgery was consulted and will do cholecystectomy.
--- NOTE | 2017-08-05 14:34 | XRay Report ---
PORTABLE CHEST INDICATION: Left arm PICC placement. COMPARISON: None similar. FINDINGS: Portable, frontal chest radiograph demonstrates left upper extremity PICC tip along the distal SVC. Slight cardiomegaly. Clear lungs. Right hemidiaphragm minimally elevated. Bilateral shoulder and multilevel spinal degenerative changes. CONCLUSION: Satisfactory PICC placement. No acute chest process. Thank you for the opportunity to participate in this patient's care.
--- NOTE | 2017-08-05 14:42 | Ultrasound Report ---
RIGHT UPPER QUADRANT ULTRASOUND: HISTORY: Pancreatitis, abdominal pain. Technique: Transabdominal ultrasound imaging with Doppler interrogation. FINDINGS: The liver is normal size, contour and echotexture. No focal liver mass or surface nodularity. No perihepatic ascites. A mild degree of sludge is suspected in the gallbladder. No shadowing gallstones are appreciated. The gallbladder is not distended. The common bile duct is mildly dilated measuring 7.3 mm. No choledocholithiasis is appreciated on ultrasound. The pancreatic head and neck are grossly normal. The distal pancreas is obscured. The proximal aorta is normal caliber. The right kidney is within normal limits measuring 11 cm in length. IMPRESSION: Mild degree of sludge in the gallbladder. No calcified gallstones. The common bile duct is mildly dilated measuring 7.3 mm. Choledocholithiasis or sludge the distal common bile duct cannot be excluded.
[2017-08-05] MEDS: HEPARIN SUB-Q SCH (21:50)
[2017-08-05] MEDS: PLAQUENIL PO SCH (21:57)
[2017-08-05] MEDS ORDERED: ROCEPHIN/NS 1 GM/50 ML 1 GM/50 ML BAG IV SCH (22:00)
[2017-08-06] MEDS: MORPHINE IV PRN ×2 (00:15→05:49)
[2017-08-06] MEDS ORDERED: APRESOLINE IV PRN (00:27)
[2017-08-06] MEDS: NACL 0.9% 1000 ML 1,000 ML IV SCH ×3 (00:39→19:56)
[2017-08-06] MEDS: ATIVAN IV PRN ×2 (01:58→09:23)
[2017-08-06 03:58] LABS: Basophils % (Auto) 0.4 % (0.0-1.8); Eosinophils % (Auto) 0.8 % (0.0-4.3); Hematocrit 33.1 % (30.3-42.9); Hemoglobin 11.1 gm/dl (10.1-14.3); Mean Corpuscular HGB Conc 34 % (30-34); Mean Corpuscular Hemoglobin 29 pg (28-32); Mean Corpuscular Volume 87 fl (79-97); Platelet Count 145 K/mm3 (140-440); Red Blood Count 3.78 M/mm3 (3.65-5.03); Red Cell Distribution Width 15.1 % (13.2-15.2); White Blood Count 6.9 K/mm3 (4.5-11.0)
[2017-08-06 04:21] LABS: Albumin 3.1 g/dL (3.9-5); Albumin/Globulin Ratio 1.1 %; Bilirubin,Direct 3.7 mg/dL (0-0.2); Bilirubin,Indirect 0.6 mg/dL; Bilirubin,Total 4.3 mg/dL (0.1-1.2); Calcium 8.3 mg/dL (8.4-10.2); Chloride 110.2 mmol/L (98-107); Potassium 3.8 mmol/L (3.6-5.0)
[2017-08-06] MEDS: ZOSYN/NS 3.375GM/50ML 3.375 GM/50 ML BAG IV SCH ×3 (05:48→22:35)
[2017-08-06] MEDS: HEPARIN SUB-Q SCH ×3 (05:49→22:34)
--- NOTE | 2017-08-06 09:42 | Progress Note ---
Assessment and Plan 71 y/o F with abdominal pain 1. gallstone pancreatitis 2. obesity 3. afib Plan: 1. continue NPO today, may have ice chips and mouth swabs 2. continue IV - NS 3. LFTs, lipase, amylase improving - continue to trend daily 4. Total and direct bilirubin remain elevated, RUQ u/s reviewed - agree with MRCP to evaluate for choledocolithiasis 5. pain control PRN 6. strict I/Os 7. OOB -> chair 8. DVT ppx - SQH 9. HOLD eliquis 10. eventual cholecystectomy once pancreatitis is resolved Subjective Date of service: 08/06/17 Narrative: Pt seen and examined. c/o epigastric abdominal pain but much improved. No n/v, f /c, cp, sob. Feels tired, did not get rest last night. Objective Vital Signs - 12hr 08/06/17 08/06/17 08/06/17 01:30 04:00 08:07 Temperature 97.6 F 98.6 F Pulse Rate 100 H 100 H 89 Respiratory 20 20 Rate Blood Pressure 185/82 149/71 139/56 [Left] O2 Sat by Pulse 96 98 Oximetry 08/06/17 08:50 Temperature Pulse Rate Respiratory Rate Blood Pressure [Left] O2 Sat by Pulse 95 Oximetry - General physical appearance Narrative Exam: Gen: AAOx3. NAD ENT: Mild scleral icterus CV: S1, S2+ Resp: No audible wheezes Abd: soft, ND, + epigastric and ruq TTP, no r/r/g Ext: trace b/l pedal edema - Labs 08/06/17 03:34 08/06/17 03:34 Diabetes panel 08/05/17 08/06/17 Range/Units 10:26 03:34 Sodium 145 147 H (137-145) mmol/L Potassium 4.3 3.8 (3.6-5.0) mmol/L Chloride 106.1 110.2 H (98-107) mmol/L Carbon Dioxide 22 21 L (22-30) mmol/L BUN 30 H 24 H (7-17) mg/dL Creatinine 1.6 H 1.3 H (0.7-1.2) mg/dL Glucose 115 H 84 (65-100) mg/dL Calcium 8.3 L 8.3 L (8.4-10.2) mg/dL AST 194 H 111 H (5-40) units/L ALT 269 H 191 H (7-56) units/L Alkaline Phosphatase 178 H 159 H (35-129) units/L Total Protein 6.3 6.0 L (6.3-8.2) g/dL Albumin 3.3 L 3.1 L (3.9-5) g/dL Triglycerides 100 (2-149) mg/dL Calcium panel 08/05/17 08/06/17 Range/Units 10:26 03:34 Calcium 8.3 L 8.3 L (8.4-10.2) mg/dL Albumin 3.3 L 3.1 L (3.9-5) g/dL Pituitary panel 08/05/17 08/06/17 Range/Units 10:26 03:34 Sodium 145 147 H (137-145) mmol/L Potassium 4.3 3.8 (3.6-5.0) mmol/L Chloride 106.1 110.2 H (98-107) mmol/L Carbon Dioxide 22 21 L (22-30) mmol/L BUN 30 H 24 H (7-17) mg/dL Creatinine 1.6 H 1.3 H (0.7-1.2) mg/dL Glucose 115 H 84 (65-100) mg/dL Calcium 8.3 L 8.3 L (8.4-10.2) mg/dL Adrenal panel 08/05/17 08/05/17 08/06/17 Range/Units 10:26 10:26 03:34 Sodium 145 147 H (137-145) mmol/L Potassium 4.3 3.8 (3.6-5.0) mmol/L Chloride 106.1 110.2 H (98-107) mmol/L Carbon Dioxide 22 21 L (22-30) mmol/L BUN 30 H 24 H (7-17) mg/dL Creatinine 1.6 H 1.3 H (0.7-1.2) mg/dL Glucose 115 H 84 (65-100) mg/dL Calcium 8.3 L 8.3 L (8.4-10.2) mg/dL Total Bilirubin 3.90 H 3.90 H 4.30 H (0.1-1.2) mg/dL AST 194 H 111 H (5-40) units/L ALT 269 H 191 H (7-56) units/L Alkaline Phosphatase 178 H 159 H (35-129) units/L Total Protein 6.3 6.0 L (6.3-8.2) g/dL Albumin 3.3 L 3.1 L (3.9-5) g/dL - Imaging US - abdomen: report reviewed, image reviewed (sludge in gallbladder, thickened GB wall )
[2017-08-06] MEDS: CYMBALTA PO SCH (10:00)
[2017-08-06] MEDS: TOPROL XL PO SCH (10:00)
--- NOTE | 2017-08-06 10:39 | Progress Note ---
Assessment and Plan Cardiac status remains stable. - Patient Problems (1) Preop cardiovascular exam Current Visit: Yes Status: Acute (2) Acute pancreatitis Current Visit: Yes Status: Acute Qualifiers: Pancreatitis type: P Acute pancreatitis complication: A (3) Moderate aortic stenosis Current Visit: Yes Status: Acute (4) Mild coronary artery disease Current Visit: Yes Status: Chronic (5) Paroxysmal atrial fibrillation Current Visit: Yes Status: Chronic (6) Hypertension Current Visit: Yes Status: Chronic Qualifiers: Hypertension type: essential hypertension Qualified Code(s): I10 - Essential (primary) hypertension (7) Obstructive sleep apnea Current Visit: Yes Status: Chronic (8) H/O systemic lupus erythematosus (SLE) Current Visit: Yes Status: Chronic (9) Morbid obesity Current Visit: Yes Status: Chronic Subjective Date of service: 08/06/17 Principal diagnosis: Acute pancreatitis, Moderate , Mild CAD, PAfib, JENNIFER Interval history: She claims that her abdomen is less painful today. Objective Vital Signs Temp Pulse Resp BP Pulse Ox 08/06/17 08:50 95 08/06/17 08:07 98.6 F 89 20 139/56 98 08/06/17 04:00 97.6 F 100 H 20 149/71 96 08/06/17 01:30 100 H 185/82 08/05/17 20:28 20 08/05/17 19:39 98.7 F 69 20 176/70 100 08/05/17 14:22 98.2 F 69 20 144/55 97 - Physical Examination General: No Apparent Distress HEENT: Positive: EOMI, Normocephaly, Mucus Membranes Moist Neck: Positive: neck supple, trachea midline Cardiac: Positive: Reg Rate and Rhythm, S1/S2 Lungs: Positive: clear to auscultation Neuro: Positive: Grossly Intact Abdomen: Positive: Soft, Active Bowel Sounds, Tender Skin: Positive: Clear. Negative: Rash Musculoskeletal: Normal Range of Motion Extremities: Present: normal. Absent: edema - Labs and Meds Cardiac Enzymes 08/05/17 08/06/17 Range/Units 10:26 03:34 AST 194 H 111 H (5-40) units/L Lipids 08/06/17 Range/Units 03:34 Triglycerides 100 (2-149) mg/dL CBC 08/05/17 08/06/17 Range/Units 10:26 03:34 WBC 8.2 6.9 (4.5-11.0) K/mm3 RBC 3.95 3.78 (3.65-5.03) M/mm3 Hgb 11.6 11.1 (10.1-14.3) gm/dl Hct 33.8 D 33.1 (30.3-42.9) % Plt Count 152 145 (140-440) K/mm3 Lymph # 0.9 L 0.6 L (1.2-5.4) K/mm3 White # 0.6 0.4 (0.0-0.8) K/mm3 Eos # 0.1 0.1 (0.0-0.4) K/mm3 Baso # 0.0 0.0 (0.0-0.1) K/mm3 Comprehensive Metabolic Panel 08/05/17 08/05/17 08/06/17 Range/Units 10:26 10:26 03:34 Sodium 145 147 H (137-145) mmol/L Potassium 4.3 3.8 (3.6-5.0) mmol/L Chloride 106.1 110.2 H (98-107) mmol/L Carbon Dioxide 22 21 L (22-30) mmol/L BUN 30 H 24 H (7-17) mg/dL Creatinine 1.6 H 1.3 H (0.7-1.2) mg/dL Glucose 115 H 84 (65-100) mg/dL Calcium 8.3 L 8.3 L (8.4-10.2) mg/dL Direct Bilirubin 3.4 H 3.7 H (0-0.2) mg/dL Indirect Bilirubin 0.5 0.6 mg/dL AST 194 H 111 H (5-40) units/L ALT 269 H 191 H (7-56) units/L Alkaline Phosphatase 178 H 159 H (35-129) units/L Total Protein 6.3 6.0 L (6.3-8.2) g/dL Albumin 3.3 L 3.1 L (3.9-5) g/dL
--- NOTE | 2017-08-06 12:09 | Gastroenterology Progress Note ---
Assessment and Plan - Patient Problems (1) Acute pancreatitis Current Visit: Yes Status: Acute Qualifiers: Pancreatitis type: P Acute pancreatitis complication: A Plan to address problem: - Likely GS given sludge in GB, and rapid weight loss from lap band. - Clinically improved and LFTs trending in right direction. - Unable to get MRCP due to shoulder pain (could not maneuver in machine). - Will likely need CCY with IOC, and/or ERCP, but no remaining gross stones on CT or US. - Will d/c abx after 48 hours if cultures remain negative and afebrile/normal WBC. Subjective Date of service: 08/06/17 Principal diagnosis: Acute pancreatitis Interval history: The patient continues to feel better. No N/V today (and wants food) and has markedly less abdominal pain - almost no pain meds in last 24 hours. No F/C and no CP/SOB. Objective - Constitutional Vitals: Temp Pulse Resp BP Pulse Ox 98.6 F 89 20 139/56 95 08/06/17 08:07 08/06/17 08:07 08/06/17 08:07 08/06/17 08:07 08/06/17 08:50 General appearance: no acute distress - Respiratory Respiratory effort: normal Respiratory: bilateral: CTA - Cardiovascular Rhythm: regular Heart Sounds: Present: S1 & S2 - Gastrointestinal General gastrointestinal: Present: soft, tender (Minimal), non-distended - Labs CBC & Chem 7: 08/06/17 03:34 08/06/17 03:34 Labs: Laboratory Results - last 24 hr 08/06/17 08/06/17 03:34 03:34 WBC 6.9 RBC 3.78 Hgb 11.1 Hct 33.1 MCV 87 MCH 29 MCHC 34 RDW 15.1 Plt Count 145 Lymph % (Auto) 8.6 L [place] % (Auto) 5.9 Eos % (Auto) 0.8 Baso % (Auto) 0.4 Lymph # 0.6 L [place] # 0.4 Eos # 0.1 Baso # 0.0 Seg Neutrophils % 84.3 H Seg Neutrophils # 5.9 Sodium 147 H Potassium 3.8 Chloride 110.2 H Carbon Dioxide 21 L Anion Gap 20 BUN 24 H Creatinine 1.3 H Estimated GFR 40 BUN/Creatinine Ratio 18 Glucose 84 Calcium 8.3 L Total Bilirubin 4.30 H Direct Bilirubin 3.7 H Indirect Bilirubin 0.6 AST 111 H ALT 191 H Alkaline Phosphatase 159 H Total Protein 6.0 L Albumin 3.1 L Albumin/Globulin Ratio 1.1 Triglycerides 100 Amylase 452 H Lipase 1106 H
--- NOTE | 2017-08-06 14:10 | Progress Note ---
Assessment and Plan Assessment and plan: 71-year-old female admitted to the floor after she was presented with abdominal pain, nausea, vomiting Pancreatitis Cholecystitis Morbid obesity Atrial fibrillation CAD Acute kidney injury - Patient is nothing by mouth, IV fluids, pain control - Surgery and GI consult appreciated - Eliquis is held for possible cholecystectomy - Cardiology is consulted for preoperative evaluation - MRI could not be done because the patient couldn't raise her arm DVT prophylaxis Disposition - Continue inpatient care History Interval history: Patient was seen and evaluated this morning, patient said abdominal pain subsided, no nausea and vomiting. I have started with clear liquid diet but surgery wants her to be continued nothing by mouth. Hospitalist Physical - Physical exam Narrative exam: Not in cardiopulmonary distress. The patient is morbidly obese. Vital signs as documented. Head exam is unremarkable. No scleral icterus . Neck is without jugular venous distension, thyromegaly, or carotid bruits. Lungs are clear to auscultation. Cardiac exam reveals regular rate and Rhythm. First and second heart sounds normal. No murmurs, rubs or gallops. Abdominal exam reveals normal bowel sounds, mild abdominal tenderness. Extremities are nonedematous and both femoral and pedal pulses are normal. IT SECURITY ENGINEER: Alert and oriented 3. No focal weakness. - Constitutional Vitals: Temp Pulse Resp BP Pulse Ox 98.6 F 89 20 139/56 95 08/06/17 08:07 08/06/17 08:07 08/06/17 08:07 08/06/17 08:07 08/06/17 08:50 General appearance: Present: mild distress Results - Labs CBC & Chem 7: 08/06/17 03:34 08/06/17 03:34 Labs: Laboratory Last Values WBC 6.9 K/mm3 (4.5-11.0) 08/06/17 03:34 RBC 3.78 M/mm3 (3.65-5.03) 08/06/17 03:34 Hgb 11.1 gm/dl (10.1-14.3) 08/06/17 03:34 Hct 33.1 % (30.3-42.9) 08/06/17 03:34 MCV 87 fl (79-97) 08/06/17 03:34 MCH 29 pg (28-32) 08/06/17 03:34 MCHC 34 % (30-34) 08/06/17 03:34 RDW 15.1 % (13.2-15.2) 08/06/17 03:34 Plt Count 145 K/mm3 (140-440) 08/06/17 03:34 Lymph % (Auto) 8.6 % (13.4-35.0) L 08/06/17 03:34 [place] % (Auto) 5.9 % (0.0-7.3) 08/06/17 03:34 Eos % (Auto) 0.8 % (0.0-4.3) 08/06/17 03:34 Baso % (Auto) 0.4 % (0.0-1.8) 08/06/17 03:34 Lymph # 0.6 K/mm3 (1.2-5.4) L 08/06/17 03:34 [place] # 0.4 K/mm3 (0.0-0.8) 08/06/17 03:34 Eos # 0.1 K/mm3 (0.0-0.4) 08/06/17 03:34 Baso # 0.0 K/mm3 (0.0-0.1) 08/06/17 03:34 Seg Neutrophils % 84.3 % (40.0-70.0) H 08/06/17 03:34 Seg Neutrophils # 5.9 K/mm3 (1.8-7.7) 08/06/17 03:34 Sodium 147 mmol/L (137-145) H 08/06/17 03:34 Potassium 3.8 mmol/L (3.6-5.0) 08/06/17 03:34 Chloride 110.2 mmol/L (98-107) H 08/06/17 03:34 Carbon Dioxide 21 mmol/L (22-30) L 08/06/17 03:34 Anion Gap 20 mmol/L 08/06/17 03:34 BUN 24 mg/dL (7-17) H 08/06/17 03:34 Creatinine 1.3 mg/dL (0.7-1.2) H 08/06/17 03:34 Estimated GFR 40 ml/min 08/06/17 03:34 BUN/Creatinine Ratio 18 % 08/06/17 03:34 Glucose 84 mg/dL (65-100) 08/06/17 03:34 Calcium 8.3 mg/dL (8.4-10.2) L 08/06/17 03:34 Total Bilirubin 4.30 mg/dL (0.1-1.2) H 08/06/17 03:34 Direct Bilirubin 3.7 mg/dL (0-0.2) H 08/06/17 03:34 Indirect Bilirubin 0.6 mg/dL 08/06/17 03:34 AST 111 units/L (5-40) H 08/06/17 03:34 ALT 191 units/L (7-56) H 08/06/17 03:34 Alkaline Phosphatase 159 units/L (35-129) H 08/06/17 03:34 Total Protein 6.0 g/dL (6.3-8.2) L 08/06/17 03:34 Albumin 3.1 g/dL (3.9-5) L 08/06/17 03:34 Albumin/Globulin Ratio 1.1 % 08/06/17 03:34 Triglycerides 100 mg/dL (2-149) 08/06/17 03:34 Amylase 452 units/L (27-131) H 08/06/17 03:34 Lipase 1106 units/L (13-60) H 08/06/17 03:34 Urine Color [place] (Yellow) 08/04/17 20:08 Urine Turbidity Clear (Clear) 08/04/17 20:08 Urine pH 5.0 (5.0-7.0) 08/04/17 20:08 Ur Specific [place] 1.013 (1.003-1.030) 08/04/17 20:08 Urine Protein 100 mg/dl mg/dL (Negative) 08/04/17 20:08 Urine Glucose (UA) 50 mg/dL (Negative) 08/04/17 20:08 Urine Ketones Neg mg/dL (Negative) 08/04/17 20:08 Urine Blood Sm (Negative) 08/04/17 20:08 Urine Nitrite Neg (Negative) 08/04/17 20:08 Urine Bilirubin Neg (Negative) 08/04/17 20:08 Urine Urobilinogen 4.0 mg/dL (<2.0) 08/04/17 20:08 Ur Leukocyte Esterase Neg (Negative) 08/04/17 20:08 Urine WBC (Auto) 7.0 /HPF (0.0-6.0) H 08/04/17 20:08 Urine RBC (Auto) 2.0 /HPF (0.0-6.0) 08/04/17 20:08 U Epithel Cells (Auto) 5.0 /HPF (0-13.0) 08/04/17 20:08 Urine Bacteria (Auto) 4+ /HPF (Negative) 08/04/17 20:08 Urine Mucus Few /HPF 08/04/17 20:08
[2017-08-06] MEDS: PLAQUENIL PO SCH (22:35)
[2017-08-07] MEDS: NACL 0.9% 1000 ML 1,000 ML IV SCH (03:13)
[2017-08-07] MEDS: MORPHINE IV PRN ×2 (03:17→21:45)
[2017-08-07 04:23] LABS: Basophils % (Auto) 0.7 % (0.0-1.8); Eosinophils % (Auto) 1.9 % (0.0-4.3); Hematocrit 28.6 % (30.3-42.9); Hemoglobin 9.8 gm/dl (10.1-14.3); Mean Corpuscular HGB Conc 34 % (30-34); Mean Corpuscular Hemoglobin 30 pg (28-32); Mean Corpuscular Volume 87 fl (79-97); Platelet Count 125 K/mm3 (140-440); Red Blood Count 3.31 M/mm3 (3.65-5.03); Red Cell Distribution Width 14.6 % (13.2-15.2); White Blood Count 6.5 K/mm3 (4.5-11.0)
[2017-08-07 04:53] LABS: Albumin/Globulin Ratio 1.2 %; Bilirubin,Direct 0.8 mg/dL (0-0.2); Bilirubin,Indirect 0.7 mg/dL; Bilirubin,Total 1.5 mg/dL (0.1-1.2); Calcium 8.1 mg/dL (8.4-10.2); Chloride 106.3 mmol/L (98-107); Potassium 3.4 mmol/L (3.6-5.0); Total Protein 5.6 g/dL (6.3-8.2)
[2017-08-07] MEDS: HEPARIN SUB-Q SCH ×4 (06:08→22:54)
[2017-08-07] MEDS: ZOSYN/NS 3.375GM/50ML 3.375 GM/50 ML BAG IV SCH ×3 (06:08→21:46)
[2017-08-07] MEDS ORDERED: APRESOLINE IV PRN (08:53)
[2017-08-07] MEDS: KCL 10MEQ/100ML 10 MEQ/100 ML BAG IV SCH ×3 (09:54→12:19)
[2017-08-07] MEDS: CYMBALTA PO SCH ×2 (09:54→12:16)
[2017-08-07] MEDS: TOPROL XL PO SCH (09:55)
--- NOTE | 2017-08-07 11:53 | Progress Note ---
Assessment and Plan 71 y/o F with abdominal pain 1. gallstone pancreatitis 2. obesity 3. afib Plan: 1. LFTs, Bilis, amylase/lipase all improved today, likely passed stone - may start clear liquids today 2. continue IV - changed to maintenance fluids 3. NPO p MN tonight except meds 4. HOLD eliquis 5. pain control PRN 6. strict I/Os 7. OOB -> chair 8. DVT ppx - SQH 9. Plan for cholecystectomy in am 08/08/17 - all risks and benefits discussed with patient and family, consent signed 10. repeat labs in am Subjective Date of service: 08/07/17 Narrative: Pt seen and examined. No complaints. Feels better. Could not get MRI yesterday. Wants to drink water. No n/v, f/c, cp, sob. Abd pain improved. Objective Vital Signs - 12hr 08/07/17 08/07/17 08/07/17 04:26 07:36 08:00 Temperature 97.9 F 98.9 F Pulse Rate 80 77 Respiratory 20 20 16 Rate Blood Pressure 167/79 173/73 [Left] O2 Sat by Pulse 97 99 Oximetry - General physical appearance Narrative Exam: Gen: AA0x3. NAD Abd: soft, NT, ND. no r/r/g - Labs 08/07/17 04:02 08/07/17 04:02 Diabetes panel 08/07/17 Range/Units 04:02 Sodium 141 (137-145) mmol/L Potassium 3.4 L (3.6-5.0) mmol/L Chloride 106.3 (98-107) mmol/L Carbon Dioxide 21 L (22-30) mmol/L BUN 22 H (7-17) mg/dL Creatinine 1.0 (0.7-1.2) mg/dL Glucose 65 (65-100) mg/dL Calcium 8.1 L (8.4-10.2) mg/dL AST 46 H (5-40) units/L ALT 129 H (7-56) units/L Alkaline Phosphatase 143 H (35-129) units/L Total Protein 5.6 L (6.3-8.2) g/dL Albumin 3.0 L (3.9-5) g/dL Calcium panel 08/07/17 Range/Units 04:02 Calcium 8.1 L (8.4-10.2) mg/dL Albumin 3.0 L (3.9-5) g/dL Pituitary panel 08/07/17 Range/Units 04:02 Sodium 141 (137-145) mmol/L Potassium 3.4 L (3.6-5.0) mmol/L Chloride 106.3 (98-107) mmol/L Carbon Dioxide 21 L (22-30) mmol/L BUN 22 H (7-17) mg/dL Creatinine 1.0 (0.7-1.2) mg/dL Glucose 65 (65-100) mg/dL Calcium 8.1 L (8.4-10.2) mg/dL Adrenal panel 08/07/17 Range/Units 04:02 Sodium 141 (137-145) mmol/L Potassium 3.4 L (3.6-5.0) mmol/L Chloride 106.3 (98-107) mmol/L Carbon Dioxide 21 L (22-30) mmol/L BUN 22 H (7-17) mg/dL Creatinine 1.0 (0.7-1.2) mg/dL Glucose 65 (65-100) mg/dL Calcium 8.1 L (8.4-10.2) mg/dL Total Bilirubin 1.50 H (0.1-1.2) mg/dL AST 46 H (5-40) units/L ALT 129 H (7-56) units/L Alkaline Phosphatase 143 H (35-129) units/L Total Protein 5.6 L (6.3-8.2) g/dL Albumin 3.0 L (3.9-5) g/dL
--- NOTE | 2017-08-07 12:10 | Gastroenterology Progress Note ---
Assessment and Plan - Patient Problems (1) Acute pancreatitis Current Visit: Yes Status: Acute Qualifiers: Pancreatitis type: P Acute pancreatitis complication: A Plan to address problem: - Likely GS given sludge in GB, and rapid weight loss from lap band. - Clinically improved and LFTs/lipase trending in right direction for last 48 hours. - Unable to get MRCP due to shoulder pain (could not maneuver in machine). - Will need CCY +/- IOC, and/or ERCP, but no remaining gross stones on CT or US. - Will d/c abx after 24 hours if cultures remain negative and afebrile/normal WBC. Subjective Date of service: 08/07/17 Principal diagnosis: Acute pancreatitis Interval history: Denies N/V/Abdominal Pain. About to start clear liquids. Objective - Constitutional Vitals: Temp Pulse Resp BP Pulse Ox 98.9 F 77 16 173/73 99 08/07/17 07:36 08/07/17 07:36 08/07/17 08:00 08/07/17 07:36 08/07/17 07:36 General appearance: no acute distress - EENT Eyes: PERRL, EOM intact - Neck Neck: supple, normal ROM - Respiratory Respiratory effort: normal Respiratory: bilateral: CTA - Cardiovascular Rhythm: regular Heart Sounds: Present: S1 & S2 - Gastrointestinal General gastrointestinal: Present: soft, non-tender, non-distended - Labs CBC & Chem 7: 08/07/17 04:02 08/07/17 04:02 Labs: Laboratory Results - last 24 hr 08/07/17 08/07/17 04:02 04:02 WBC 6.5 RBC 3.31 L Hgb 9.8 L Hct 28.6 L MCV 87 MCH 30 MCHC 34 RDW 14.6 Plt Count 125 L Lymph % (Auto) 11.0 L [place] % (Auto) 7.3 Eos % (Auto) 1.9 Baso % (Auto) 0.7 Lymph # 0.7 L [place] # 0.5 Eos # 0.1 Baso # 0.0 Seg Neutrophils % 79.1 H Seg Neutrophils # 5.2 Sodium 141 Potassium 3.4 L Chloride 106.3 Carbon Dioxide 21 L Anion Gap 17 BUN 22 H Creatinine 1.0 Estimated GFR 55 BUN/Creatinine Ratio 22 Glucose 65 Calcium 8.1 L Total Bilirubin 1.50 H Direct Bilirubin 0.8 H Indirect Bilirubin 0.7 AST 46 H ALT 129 H Alkaline Phosphatase 143 H Total Protein 5.6 L Albumin 3.0 L Albumin/Globulin Ratio 1.2 Amylase 118 Lipase 180 H
[2017-08-07] MEDS: D5W/0.45% NACL/KCL 20 MEQ 20 MEQ/1,000 ML BAG IV SCH (12:56)
--- NOTE | 2017-08-07 13:45 | Progress Note ---
Assessment and Plan Increase the dose of metoprolol. - Patient Problems (1) Preop cardiovascular exam Current Visit: Yes Status: Acute (2) Acute pancreatitis Current Visit: Yes Status: Acute Qualifiers: Pancreatitis type: P Acute pancreatitis complication: A (3) Moderate aortic stenosis Current Visit: Yes Status: Acute (4) Mild coronary artery disease Current Visit: Yes Status: Chronic (5) Paroxysmal atrial fibrillation Current Visit: Yes Status: Chronic (6) Hypertension Current Visit: Yes Status: Chronic Qualifiers: Hypertension type: essential hypertension Qualified Code(s): I10 - Essential (primary) hypertension (7) Obstructive sleep apnea Current Visit: Yes Status: Chronic (8) H/O systemic lupus erythematosus (SLE) Current Visit: Yes Status: Chronic (9) Morbid obesity Current Visit: Yes Status: Chronic Subjective Date of service: 08/07/17 Principal diagnosis: Acute pancreatitis Interval history: She feels better. Less abdominal pain. Objective Vital Signs Temp Pulse Resp BP Pulse Ox 08/07/17 12:59 97.8 F 85 16 152/83 08/07/17 08:00 16 08/07/17 07:36 98.9 F 77 20 173/73 99 08/07/17 04:26 97.9 F 80 20 167/79 97 08/06/17 19:07 99.2 F 79 20 140/98 97 08/06/17 14:47 88 16 100 08/06/17 14:00 98.3 F 76 20 122/69 100 - Physical Examination General: No Apparent Distress HEENT: Positive: EOMI, Normocephaly, Mucus Membranes Moist Neck: Positive: neck supple, trachea midline Cardiac: Positive: Reg Rate and Rhythm Lungs: Positive: clear to auscultation Neuro: Positive: Grossly Intact Abdomen: Positive: Soft, Active Bowel Sounds, Tender Skin: Positive: Clear. Negative: Rash Musculoskeletal: Normal Range of Motion Extremities: Present: normal. Absent: edema - Labs and Meds Cardiac Enzymes 08/07/17 Range/Units 04:02 AST 46 H (5-40) units/L CBC 08/07/17 Range/Units 04:02 WBC 6.5 (4.5-11.0) K/mm3 RBC 3.31 L (3.65-5.03) M/mm3 Hgb 9.8 L (10.1-14.3) gm/dl Hct 28.6 L (30.3-42.9) % Plt Count 125 L (140-440) K/mm3 Lymph # 0.7 L (1.2-5.4) K/mm3 [place] # 0.5 (0.0-0.8) K/mm3 Eos # 0.1 (0.0-0.4) K/mm3 Baso # 0.0 (0.0-0.1) K/mm3 Comprehensive Metabolic Panel 08/07/17 Range/Units 04:02 Sodium 141 (137-145) mmol/L Potassium 3.4 L (3.6-5.0) mmol/L Chloride 106.3 (98-107) mmol/L Carbon Dioxide 21 L (22-30) mmol/L BUN 22 H (7-17) mg/dL Creatinine 1.0 (0.7-1.2) mg/dL Glucose 65 (65-100) mg/dL Calcium 8.1 L (8.4-10.2) mg/dL Direct Bilirubin 0.8 H (0-0.2) mg/dL Indirect Bilirubin 0.7 mg/dL AST 46 H (5-40) units/L ALT 129 H (7-56) units/L Alkaline Phosphatase 143 H (35-129) units/L Total Protein 5.6 L (6.3-8.2) g/dL Albumin 3.0 L (3.9-5) g/dL - Imaging and Cardiology EKG: image reviewed
--- NOTE | 2017-08-07 15:25 | Progress Note ---
Assessment and Plan Assessment and plan: --Acute biliary pancreatitis Continue nothing by mouth status, lipase and transaminases trending down GI surgery following --Acute cholecystitis; IV fluids, IV antibiotics, possible lap cholecystectomy tomorrow for surgery if stable --Leukocytosis; secondary to acute pancreatitis and cholecystitis, resolved --History of atrial fibrillation; rate controlled, continue current beta blockers Chronic anticoagulation with Eliquis, hold and prep patient for surgery --Acute renal failure; probably secondary to vasomotor nephropathy Creatinine trending down, nominal levels today. Gentle IV hydration, closely monitor renal function, avoid nephrotoxic medications --History of coronary artery disease; continue current cardiac medications, cardiology following --DVT prophylaxis; patient already on Eliquis Follow GI and surgical recommendations Plan of care discussed with the patient and her nurse History Interval history: Patient seen and examined this morning Medical records reviewed, seems slightly better, anxious to eat Lipase, transaminases trending down Alert awake oriented 3 not in acute distress Hospitalist Physical - Constitutional Vitals: Temp Pulse Resp BP Pulse Ox 97.8 F 85 16 152/83 99 08/07/17 12:59 08/07/17 12:59 08/07/17 12:59 08/07/17 12:59 08/07/17 07:36 General appearance: Present: no acute distress, obese (morbidly obese) - EENT Eyes: Present: PERRL, EOM intact - Neck Neck: Present: supple, normal ROM - Respiratory Respiratory effort: normal Respiratory: bilateral: diminished, negative: rales, rhonchi, wheezing - Cardiovascular Rhythm: regular Heart Sounds: Present: S1 & S2 - Extremities Extremities: no ischemia, No edema - Abdominal General gastrointestinal: soft, non-tender, non-distended, normal bowel sounds - Integumentary Integumentary: Present: clear, warm - Psychiatric Psychiatric: appropriate mood/affect, cooperative - Neurologic Neurologic: CNII-XII intact, moves all extremities Results - Labs CBC & Chem 7: 08/07/17 04:02 08/07/17 04:02 Labs: Laboratory Last Values WBC 6.5 K/mm3 (4.5-11.0) 08/07/17 04:02 RBC 3.31 M/mm3 (3.65-5.03) L 08/07/17 04:02 Hgb 9.8 gm/dl (10.1-14.3) L 08/07/17 04:02 Hct 28.6 % (30.3-42.9) L 08/07/17 04:02 MCV 87 fl (79-97) 08/07/17 04:02 MCH 30 pg (28-32) 08/07/17 04:02 MCHC 34 % (30-34) 08/07/17 04:02 RDW 14.6 % (13.2-15.2) 08/07/17 04:02 Plt Count 125 K/mm3 (140-440) L 08/07/17 04:02 Lymph % (Auto) 11.0 % (13.4-35.0) L 08/07/17 04:02 [place] % (Auto) 7.3 % (0.0-7.3) 08/07/17 04:02 Eos % (Auto) 1.9 % (0.0-4.3) 08/07/17 04:02 Baso % (Auto) 0.7 % (0.0-1.8) 08/07/17 04:02 Lymph # 0.7 K/mm3 (1.2-5.4) L 08/07/17 04:02 [place] # 0.5 K/mm3 (0.0-0.8) 08/07/17 04:02 Eos # 0.1 K/mm3 (0.0-0.4) 08/07/17 04:02 Baso # 0.0 K/mm3 (0.0-0.1) 08/07/17 04:02 Seg Neutrophils % 79.1 % (40.0-70.0) H 08/07/17 04:02 Seg Neutrophils # 5.2 K/mm3 (1.8-7.7) 08/07/17 04:02 Sodium 141 mmol/L (137-145) 08/07/17 04:02 Potassium 3.4 mmol/L (3.6-5.0) L 08/07/17 04:02 Chloride 106.3 mmol/L (98-107) 08/07/17 04:02 Carbon Dioxide 21 mmol/L (22-30) L 08/07/17 04:02 Anion Gap 17 mmol/L 08/07/17 04:02 BUN 22 mg/dL (7-17) H 08/07/17 04:02 Creatinine 1.0 mg/dL (0.7-1.2) 08/07/17 04:02 Estimated GFR 55 ml/min 08/07/17 04:02 BUN/Creatinine Ratio 22 % 08/07/17 04:02 Glucose 65 mg/dL (65-100) 08/07/17 04:02 Calcium 8.1 mg/dL (8.4-10.2) L 08/07/17 04:02 Total Bilirubin 1.50 mg/dL (0.1-1.2) H 08/07/17 04:02 Direct Bilirubin 0.8 mg/dL (0-0.2) H 08/07/17 04:02 Indirect Bilirubin 0.7 mg/dL 08/07/17 04:02 AST 46 units/L (5-40) H 08/07/17 04:02 ALT 129 units/L (7-56) H 08/07/17 04:02 Alkaline Phosphatase 143 units/L (35-129) H 08/07/17 04:02 Total Protein 5.6 g/dL (6.3-8.2) L 08/07/17 04:02 Albumin 3.0 g/dL (3.9-5) L 08/07/17 04:02 Albumin/Globulin Ratio 1.2 % 08/07/17 04:02 Triglycerides 100 mg/dL (2-149) 08/06/17 03:34 Amylase 118 units/L (27-131) 08/07/17 04:02 Lipase 180 units/L (13-60) H 08/07/17 04:02 Urine Color [place] (Yellow) 08/04/17 20:08 Urine Turbidity Clear (Clear) 08/04/17 20:08 Urine pH 5.0 (5.0-7.0) 08/04/17 20:08 Ur Specific [place] 1.013 (1.003-1.030) 08/04/17 20:08 Urine Protein 100 mg/dl mg/dL (Negative) 08/04/17 20:08 Urine Glucose (UA) 50 mg/dL (Negative) 08/04/17 20:08 Urine Ketones Neg mg/dL (Negative) 08/04/17 20:08 Urine Blood Sm (Negative) 08/04/17 20:08 Urine Nitrite Neg (Negative) 08/04/17 20:08 Urine Bilirubin Neg (Negative) 08/04/17 20:08 Urine Urobilinogen 4.0 mg/dL (<2.0) 08/04/17 20:08 Ur Leukocyte Esterase Neg (Negative) 08/04/17 20:08 Urine WBC (Auto) 7.0 /HPF (0.0-6.0) H 08/04/17 20:08 Urine RBC (Auto) 2.0 /HPF (0.0-6.0) 08/04/17 20:08 U Epithel Cells (Auto) 5.0 /HPF (0-13.0) 08/04/17 20:08 Urine Bacteria (Auto) 4+ /HPF (Negative) 08/04/17 20:08 Urine Mucus Few /HPF 08/04/17 20:08
[2017-08-07] MEDS: PLAQUENIL PO SCH (21:45)
[2017-08-07] MEDS: LOPRESSOR PO SCH (21:45)
[2017-08-07] MEDS: ATIVAN IV PRN (21:48)
[2017-08-08] MEDS: D5W/0.45% NACL/KCL 20 MEQ 20 MEQ/1,000 ML BAG IV SCH (00:40)
[2017-08-08] MEDS: ZOSYN/NS 3.375GM/50ML 3.375 GM/50 ML BAG IV SCH (05:58)
[2017-08-08] MEDS: HEPARIN SUB-Q SCH ×3 (05:58→21:08)
--- NOTE | 2017-08-08 07:47 | Progress Note ---
Assessment and Plan Assessment and plan: --Acute cholecystitis; cholecystectomy today, IV fluids, IV antibiotics,Supportive care --Acute biliary pancreatitis Lipase and transaminases trending downg surgery and GI following --Leukocytosis; secondary to acute pancreatitis and cholecystitis, resolved --History of atrial fibrillation; rate controlled, continue current beta blockers Chronic anticoagulation with Eliquis on hold for surgery --Acute renal failure; probably secondary to vasomotor nephropathy,Resolved. --History of coronary artery disease; continue current cardiac medications, cardiology following --DVT prophylaxis; SCD Follow GI and surgical recommendations Plan of care discussed with the patient and her nurse History Interval history: patient seen and evaluated this morning scheduled for surgery today Hospitalist Physical - Constitutional Vitals: Temp Pulse Resp BP Pulse Ox 98.1 F 81 20 146/64 94 08/08/17 05:00 08/08/17 05:00 08/08/17 05:00 08/08/17 05:00 08/08/17 05:00 General appearance: Present: no acute distress, well-nourished, obese (morbidly obese) - EENT Eyes: Present: PERRL, EOM intact - Neck Neck: Present: supple, normal ROM - Respiratory Respiratory effort: normal Respiratory: bilateral: diminished, negative: rales, rhonchi, wheezing - Cardiovascular Rhythm: regular Heart Sounds: Present: S1 & S2 - Extremities Extremities: no ischemia, No edema Peripheral Pulses: within normal limits - Abdominal General gastrointestinal: soft, non-tender, non-distended, normal bowel sounds - Integumentary Integumentary: Present: clear, jaundice - Psychiatric Psychiatric: appropriate mood/affect - Neurologic Neurologic: CNII-XII intact, moves all extremities Results - Labs CBC & Chem 7: 08/07/17 04:02 08/08/17 07:20 Labs: Laboratory Last Values WBC 6.5 K/mm3 (4.5-11.0) 08/07/17 04:02 RBC 3.31 M/mm3 (3.65-5.03) L 08/07/17 04:02 Hgb 9.8 gm/dl (10.1-14.3) L 08/07/17 04:02 Hct 28.6 % (30.3-42.9) L 08/07/17 04:02 MCV 87 fl (79-97) 08/07/17 04:02 MCH 30 pg (28-32) 08/07/17 04:02 MCHC 34 % (30-34) 08/07/17 04:02 RDW 14.6 % (13.2-15.2) 08/07/17 04:02 Plt Count 125 K/mm3 (140-440) L 08/07/17 04:02 Lymph % (Auto) 11.0 % (13.4-35.0) L 08/07/17 04:02 [place] % (Auto) 7.3 % (0.0-7.3) 08/07/17 04:02 Eos % (Auto) 1.9 % (0.0-4.3) 08/07/17 04:02 Baso % (Auto) 0.7 % (0.0-1.8) 08/07/17 04:02 Lymph # 0.7 K/mm3 (1.2-5.4) L 08/07/17 04:02 [place] # 0.5 K/mm3 (0.0-0.8) 08/07/17 04:02 Eos # 0.1 K/mm3 (0.0-0.4) 08/07/17 04:02 Baso # 0.0 K/mm3 (0.0-0.1) 08/07/17 04:02 Seg Neutrophils % 79.1 % (40.0-70.0) H 08/07/17 04:02 Seg Neutrophils # 5.2 K/mm3 (1.8-7.7) 08/07/17 04:02 Sodium 141 mmol/L (137-145) 08/07/17 04:02 Potassium 3.4 mmol/L (3.6-5.0) L 08/07/17 04:02 Chloride 106.3 mmol/L (98-107) 08/07/17 04:02 Carbon Dioxide 21 mmol/L (22-30) L 08/07/17 04:02 Anion Gap 17 mmol/L 08/07/17 04:02 BUN 22 mg/dL (7-17) H 08/07/17 04:02 Creatinine 1.0 mg/dL (0.7-1.2) 08/07/17 04:02 Estimated GFR 55 ml/min 08/07/17 04:02 BUN/Creatinine Ratio 22 % 08/07/17 04:02 Glucose 65 mg/dL (65-100) 08/07/17 04:02 Calcium 8.1 mg/dL (8.4-10.2) L 08/07/17 04:02 Total Bilirubin 1.50 mg/dL (0.1-1.2) H 08/07/17 04:02 Direct Bilirubin 0.8 mg/dL (0-0.2) H 08/07/17 04:02 Indirect Bilirubin 0.7 mg/dL 08/07/17 04:02 AST 46 units/L (5-40) H 08/07/17 04:02 ALT 129 units/L (7-56) H 08/07/17 04:02 Alkaline Phosphatase 143 units/L (35-129) H 08/07/17 04:02 Total Protein 5.6 g/dL (6.3-8.2) L 08/07/17 04:02 Albumin 3.0 g/dL (3.9-5) L 08/07/17 04:02 Albumin/Globulin Ratio 1.2 % 08/07/17 04:02 Triglycerides 100 mg/dL (2-149) 08/06/17 03:34 Amylase 118 units/L (27-131) 08/07/17 04:02 Lipase 180 units/L (13-60) H 08/07/17 04:02 Urine Color [place] (Yellow) 08/04/17 20:08 Urine Turbidity Clear (Clear) 08/04/17 20:08 Urine pH 5.0 (5.0-7.0) 08/04/17 20:08 Ur Specific [place] 1.013 (1.003-1.030) 08/04/17 20:08 Urine Protein 100 mg/dl mg/dL (Negative) 08/04/17 20:08 Urine Glucose (UA) 50 mg/dL (Negative) 08/04/17 20:08 Urine Ketones Neg mg/dL (Negative) 08/04/17 20:08 Urine Blood Sm (Negative) 08/04/17 20:08 Urine Nitrite Neg (Negative) 08/04/17 20:08 Urine Bilirubin Neg (Negative) 08/04/17 20:08 Urine Urobilinogen 4.0 mg/dL (<2.0) 08/04/17 20:08 Ur Leukocyte Esterase Neg (Negative) 08/04/17 20:08 Urine WBC (Auto) 7.0 /HPF (0.0-6.0) H 08/04/17 20:08 Urine RBC (Auto) 2.0 /HPF (0.0-6.0) 08/04/17 20:08 U Epithel Cells (Auto) 5.0 /HPF (0-13.0) 08/04/17 20:08 Urine Bacteria (Auto) 4+ /HPF (Negative) 08/04/17 20:08 Urine Mucus Few /HPF 08/04/17 20:08
--- NOTE | 2017-08-08 07:54 | Anesthesia Day of Surgery ---
Anesthesia Day of Surgery - Day of Surgery Patient Examined: Yes Patient H&P Reviewed: Yes Patient is NPO: Yes
--- NOTE | 2017-08-08 07:54 | Anesthesia Consultation ---
Anesthesia Consult and Med Hx Date of service: 08/08/17 - Airway Anesthetic Teeth Evaluation: Good, Bridges (upper right) ROM Head & Neck: Inadequate Mental/Hyoid Distance: Inadequate Mallampati Class: Class IV Intubation Access Assessment: Possibly Difficult - Pulmonary Exam CTA: Yes - Cardiac Exam Cardiac Exam: RRR - Pre-Operative Health Status ASA Pre-Surgery Classification: ASA3 Proposed Anesthetic Plan: General - Pre-Anesthesia Comment Pre-Anesthesia Comments: Small mouth opening - Pulmonary Hx Smoking: No Hx Sleep Apnea: Yes (uses CPAP) - Cardiovascular System Hx Hypertension: Yes Hx Cardia Arrhythmia: Yes (Afib controlled) Hx Pacemaker: No Hx Internal Defibrillator: No - Central Nervous System Hx Neuromuscular Disorder: Yes (Lupus) Hx Psychiatric Problems: Yes (anxiety) - Gastrointestinal Hx Gastroesophageal Reflux Disease: Yes (mild) - Endocrine Hx Renal Disease: Yes (stage 3) Hx Insulin Dependent Diabetes: No - Hematic Hx Anemia: No Hx Sickle Cell Disease: No - Other Systems Hx Alcohol Use: No Hx Substance Use: No Hx Cancer: No Hx Obesity: Yes (BMI 46.8) - Additional Comments Anesthesia Medical History Comments: Patient states, "Have stent in belly button from lap band placement." s/p Lap Band procedure patient had a severe sore throat, and continues to have intermittent pain in neck that radiates to right ear. Occassionally pain in ear correlates with a "flutter sound."
[2017-08-08 08:00] LABS: Alanine Aminotransferase 84 units/L (7-56); Albumin 2.9 g/dL (3.9-5); Albumin/Globulin Ratio 1.2 %; Alkaline Phosphatase 123 units/L (35-129); Anion Gap 14 mmol/L; BUN/Creatinine Ratio 14; Bilirubin,Direct 0.5 mg/dL (0-0.2); Bilirubin,Indirect 0.7 mg/dL; Blood Urea Nitrogen 11 mg/dL (7-17); Calcium 7.9 mg/dL (8.4-10.2); Carbon Dioxide 24 mmol/L (22-30); Chloride 104.1 mmol/L (98-107); Glucose 113 mg/dL (65-100); Lipase 125 units/L (13-60); Potassium 3.6 mmol/L (3.6-5.0); Sodium 138 mmol/L (137-145); Total Protein 5.4 g/dL (6.3-8.2)
--- NOTE | 2017-08-08 08:26 | Consultation ---
REASON FOR CONSULTATION: Abdominal pain, nausea, vomiting, possible band obstruction. HISTORY OF PRESENT ILLNESS: A 71-year-old female who had done a lap band about 3-6 months ago, who was doing fine until apparently as she was having some issues with nausea, vomiting, unable to keep anything down. Also, has some diffuse abdominal pain. They called me apparently on the way to transport to the Emergency Room and came to evaluate possible band obstruction. The patient denies any fevers. Currently hemodynamically stable in way to route. She does say she has some diffuse abdominal pain as well. PAST MEDICAL HISTORY: Hypertension, morbid obesity. MEDICATIONS: Per chart. PAST SURGICAL HISTORY: As above. Hysterectomy. REVIEW OF SYSTEMS: Otherwise, unremarkable. PHYSICAL EXAMINATION: HEENT: Pupils equal, reactive. NECK: No JVD. Trachea midline. RESPIRATORY: Clear. CARDIOVASCULAR: Regular rate and rhythm. ABDOMEN: Soft, nondistended, diffusely tender with mild guarding. No obvious rebound. Port in good position. EXTREMITIES: Good range of motion. NEUROLOGIC: Intact. PSYCHIATRIC: Alert and oriented x 3. ASSESSMENT: Abdominal pain, unlikely a band issue, but we will take her fluid out of her band today just to make sure relieve that is the issue. I would recommend a CT abdomen and get a General Surgery evaluation. OPERATIVE PROCEDURE NOTE PREOPERATIVE DIAGNOSIS: Possible band obstruction. POSTOPERATIVE DIAGNOSIS: Possible band obstruction. PROCEDURE: Band adjustment at bedside under local anesthesia. CONDITION: The patient tolerated the procedure well. DESCRIPTION OF PROCEDURE: I saw the patient at bedside. The area of the port prepped. After local anesthetic was applied, Quintero needle was placed for aspiration of fluid. I removed 6 mL of fluid from her band. Needle removed. Bandage placed. The patient tolerated the procedure well. JOB# [id number] NICOLE/ANA
--- NOTE | 2017-08-08 09:04 | Progress Note ---
Assessment and Plan Currently stable cardiac status. For cholecystectomy today. The patient has been seen in conjunction with Dr. Schulte who agrees with the assessment and plan of care. - Patient Problems (1) Preop cardiovascular exam Current Visit: Yes Status: Acute (2) Acute pancreatitis Current Visit: Yes Status: Acute Qualifiers: Pancreatitis type: P Acute pancreatitis complication: A (3) Moderate aortic stenosis Current Visit: Yes Status: Acute (4) Mild coronary artery disease Current Visit: Yes Status: Chronic (5) Paroxysmal atrial fibrillation Current Visit: Yes Status: Chronic (6) Hypertension Current Visit: Yes Status: Chronic Qualifiers: Hypertension type: essential hypertension Qualified Code(s): I10 - Essential (primary) hypertension (7) Obstructive sleep apnea Current Visit: Yes Status: Chronic (8) H/O systemic lupus erythematosus (SLE) Current Visit: Yes Status: Chronic (9) Morbid obesity Current Visit: Yes Status: Chronic Subjective Date of service: 08/08/17 Principal diagnosis: Acute pancreatitis Interval history: Pt resting comfortably in bed, no current cardiac complaints. For surgery today. Objective Last Vital Signs Temp 986 F H 08/08/17 07:49 Pulse 77 08/08/17 07:49 Resp 18 08/08/17 07:49 BP 152/68 08/08/17 07:49 Pulse Ox 98 08/08/17 07:49 - Physical Examination General: No Apparent Distress HEENT: Positive: EOMI, Normocephaly, Mucus Membranes Moist Neck: Positive: neck supple, trachea midline Cardiac: Positive: Reg Rate and Rhythm, S1/S2, Systolic Murmur Lungs: Positive: Decreased Breath Sounds Neuro: Positive: Grossly Intact Abdomen: Positive: Soft, Active Bowel Sounds, Tender Skin: Positive: Clear. Negative: Rash Musculoskeletal: Normal Range of Motion Extremities: Present: normal. Absent: edema - Labs and Meds Cardiac Enzymes 08/08/17 Range/Units 07:20 AST 20 (5-40) units/L Comprehensive Metabolic Panel 08/08/17 Range/Units 07:20 Sodium 138 (137-145) mmol/L Potassium 3.6 (3.6-5.0) mmol/L Chloride 104.1 (98-107) mmol/L Carbon Dioxide 24 (22-30) mmol/L BUN 11 (7-17) mg/dL Creatinine 0.8 (0.7-1.2) mg/dL Glucose 113 H (65-100) mg/dL Calcium 7.9 L (8.4-10.2) mg/dL Direct Bilirubin 0.5 H (0-0.2) mg/dL Indirect Bilirubin 0.7 mg/dL AST 20 (5-40) units/L ALT 84 H (7-56) units/L Alkaline Phosphatase 123 (35-129) units/L Total Protein 5.4 L (6.3-8.2) g/dL Albumin 2.9 L (3.9-5) g/dL - Imaging and Cardiology EKG: image reviewed
[2017-08-08] MEDS: CYMBALTA PO SCH (09:41)
[2017-08-08] MEDS: LOPRESSOR PO SCH ×2 (09:41→21:07)
[2017-08-08] MEDS: NACL 0.9% 1000 ML 1,000 ML IV SCH ×2 (11:28→21:05)
[2017-08-08] MEDS ORDERED: VERSED IV NR (12:00)
[2017-08-08] MEDS ORDERED: PEPCID IV NR (12:00)
[2017-08-08] MEDS ORDERED: XYLOCAINE MPF 2% ONE (14:12)
[2017-08-08] MEDS ORDERED: ZEMURON IV ONE (14:12)
[2017-08-08] MEDS ORDERED: SUBLIMAZE ONE (14:12)
[2017-08-08] MEDS ORDERED: DIPRIVAN 10 MG/ML IV ONE (14:13)
[2017-08-08] MEDS ORDERED: NACL 0.9% 250ML 250 ML ONE (14:16)
[2017-08-08] MEDS ORDERED: XYLOCAINE 1% 20 mL ONE (15:06)
[2017-08-08] MEDS ORDERED: NACL 0.9% 250ML IV ONE (15:21)
[2017-08-08] MEDS ORDERED: NACL 0.9% IR ONE (15:21)
[2017-08-08] MEDS ORDERED: XYLOCAINE 1% 20 mL INFILTRATI ONE (15:21)
[2017-08-08] MEDS ORDERED: OMNIPAQUE 300 MG/50 ML (CATH LAB) IV ONE (15:22)
[2017-08-08] MEDS ORDERED: DILAUDID ONE (15:35)
--- NOTE | 2017-08-08 15:48 | Fluoroscopy Report ---
FLUOROSCOPY CHOLANGIOGRAM OPERATIVE History: Pancreatitis. Findings: Fluoroscopy was provided by radiology during intraoperative cholangiogram by surgery. A single fluoroscopic image of the right upper quadrant was obtained. Cholecystectomy has been performed. There is no evidence for biliary leak. There is normal filling of the biliary tree. No choledocholithiasis or stricture is appreciated. Only the proximal pancreatic duct is visualized which is unremarkable. Impression: Cholecystectomy. No filling defect, stricture or leakage of contrast is appreciated.
[2017-08-08] MEDS ORDERED: DECADRON ONE (15:49)
[2017-08-08] MEDS ORDERED: ZOFRAN ONE (15:49)
[2017-08-08] MEDS ORDERED: ROBINUL ONE (15:49)
[2017-08-08] MEDS ORDERED: NEOSTIGMINE ONE (15:49)
[2017-08-08] MEDS ORDERED: NORCO 5/325 PO PRN (15:51)
--- NOTE | 2017-08-08 16:07 | Operative Report ---
Operative Report Operative Report: Date of service: 08/08/2017 Preoperative diagnosis: GallStone pancreatitis Postoperative diagnosis: Gallstone pancreatitis Procedure performed: Laparoscopic cholecystectomy, intraoperative cholangiogram Surgeon: Ivet Melara D.O Bunch Maker: Dr. Hardin Anesthesia: general endotracheal anesthesia Findings: thickened and edematous gallbladder with sludge. Cholangiogram showed no filling defect Specimen: gallbladder EBL: 50cc Complications: none Patient disposition and condition: stable to PACU HPI an indication: The patient is a 71-year-old female who presented to the hospital with abdominal pain localized to the epigastrum and right upper quadrant. She was found to have pancreatitis based on labs and CT scan and gallbladder sludge and wall thickening on RUQ ultrasound. She was treated with NPO, IVF, and serial labs until the pancreatitis resolved. Patient's bilirubins improved. She was then scheduled for a laparoscopic cholecystectomy with cholangiogram. All risks and benefits were discussed with the patient and the patient was in agreement to proceed to cholecystectomy. Consent was signed and placed on chart. Procedure in detail: Patient was identified in the preoperative area and taken back to the operating room and placed on the operating room table in supine position. After anesthesia was induced the abdomen was prepped and draped in the usual sterile fashion. A timeout was performed. All port sites were infilitrated with 1% lidocaine prior to incisions. The abdomen was entered through a 5 mm incision in the RUQ using the optiview technique and the abdomen insufflated. The abdomen was then inspected and there was no underlying injuries to any of the abdominal contents. A 5 mm incision was then made supraumbilical and a 5 mm trocar was inserted under direct visualization. An additional 12 mm subxiphoid port and 5 mm port in the right upper quadrant were placed all under direct visualization. The gallbladder was then visualized and grasped and lifted cephalad and over the liver. It appeared to be thickened and edematous with pericholecystic fluid. The cystic duct and artery were then meticulously dissected as well as the cystic plate. The cystic artery and duct were identified as the only 2 structures entering the gallbladder. Cystic artery was clipped with 2 below and 1 above and transected with EndoShears. The cystic duct was clipped with one clip towards the gallbladder and a small ductotomy was made using the Endo Everardo. A 5 mm pediatric feeding tube was then inserted into the cystic duct and secured and then flushed with saline. A cholangiogram was performed with a 50-50 mixture of saline and omnipaque dye. The right and left hepatic ducts and the entirety of the common bile duct were visualized, with filling of the small bowel with contrast. There were no filling defects identified. The cystic duct was then clipped, with 3 clips below and it was completely transected.. The gallbladder was then dissected off the liver bed using electrocautery. Hemostasis was achieved along the way. The gallbladder was then placed into an Endo Catch bag and removed from the abdomen via the 12 mm port. The liver bed and gallbladder fossa were then inspected and hemostasis carefully achieved electrocautery and Yaron powder. The clips were identified and intact. The abdomen was then desufflated and all ports removed under direct visualization. The 12 mm port fascia was closed with a single interrupted 0 Vicryl stitch. The skin incisions were closed with 4-0 Monocryl subcuticular stitches and skin glue. At the end of the case all sponge, instrument, and sharp counts were correct 2. The patient was awoken from anesthesia and extubated. The patient was taken to PACU in stable condition.
--- NOTE | 2017-08-08 17:21 | Event Note ---
Date: 08/08/17 Note made of normal cholangiogram; will sign off. Please call if needed.
[2017-08-08] MEDS: MORPHINE IV PRN (21:05)
[2017-08-08] MEDS: PLAQUENIL PO SCH (21:05)
[2017-08-08] MEDS: ATIVAN IV PRN (23:36)
[2017-08-09] MEDS: HEPARIN SUB-Q SCH (06:51)
[2017-08-09] MEDS: CYMBALTA PO SCH (09:45)
[2017-08-09] MEDS: LOPRESSOR PO SCH (09:47)
--- NOTE | 2017-08-09 10:07 | Progress Note ---
Assessment and Plan S/p cholecystectomy. Optimize anti-hypertensive regimen - resume home ACEI (pt on benazepril at home which will be sub to lisinopril during this admission). Resume home eliquis if/when okay per surgery. The patient has been seen in conjunction with Dr. Schulte who agrees with the assessment and plan of care. - Patient Problems (1) Preop cardiovascular exam Current Visit: Yes Status: Acute (2) Acute pancreatitis Current Visit: Yes Status: Acute Qualifiers: Pancreatitis type: P Acute pancreatitis complication: A (3) Moderate aortic stenosis Current Visit: Yes Status: Acute (4) Mild coronary artery disease Current Visit: Yes Status: Chronic (5) Paroxysmal atrial fibrillation Current Visit: Yes Status: Chronic (6) Hypertension Current Visit: Yes Status: Chronic Qualifiers: Hypertension type: essential hypertension Qualified Code(s): I10 - Essential (primary) hypertension (7) Obstructive sleep apnea Current Visit: Yes Status: Chronic (8) H/O systemic lupus erythematosus (SLE) Current Visit: Yes Status: Chronic (9) Morbid obesity Current Visit: Yes Status: Chronic Subjective Date of service: 08/09/17 Principal diagnosis: Acute pancreatitis Interval history: Pt resting comfortably in bed, no current cardiac complaints. s/p cholecystectomy yesterday. BPs elevated this AM. Objective Last Vital Signs Temp 98.5 F 08/09/17 07:30 Pulse 75 08/09/17 09:47 Resp 18 08/09/17 07:30 BP 176/56 08/09/17 09:47 Pulse Ox 99 08/09/17 04:08 - Physical Examination General: No Apparent Distress HEENT: Positive: EOMI, Normocephaly, Mucus Membranes Moist Neck: Positive: neck supple, trachea midline Cardiac: Positive: Reg Rate and Rhythm, S1/S2, Systolic Murmur Lungs: Positive: clear to auscultation Neuro: Positive: Grossly Intact Abdomen: Positive: Soft, Active Bowel Sounds, Tender, Other (laparascopic surgical sites) Skin: Positive: Clear. Negative: Rash Musculoskeletal: Normal Range of Motion Extremities: Present: normal. Absent: edema - Imaging and Cardiology EKG: image reviewed
--- NOTE | 2017-08-09 10:49 | Progress Note ---
Hospitalist Physical - Constitutional Vitals: Temp Pulse Resp BP Pulse Ox 98.5 F 75 18 176/56 99 08/09/17 07:30 08/09/17 09:47 08/09/17 08:00 08/09/17 09:47 08/09/17 04:08 General appearance: Present: no acute distress, well-nourished, obese (morbidly obese) Results - Labs CBC & Chem 7: 08/07/17 04:02 08/08/17 07:20 Labs: Laboratory Last Values WBC 6.5 K/mm3 (4.5-11.0) 08/07/17 04:02 RBC 3.31 M/mm3 (3.65-5.03) L 08/07/17 04:02 Hgb 9.8 gm/dl (10.1-14.3) L 08/07/17 04:02 Hct 28.6 % (30.3-42.9) L 08/07/17 04:02 MCV 87 fl (79-97) 08/07/17 04:02 MCH 30 pg (28-32) 08/07/17 04:02 MCHC 34 % (30-34) 08/07/17 04:02 RDW 14.6 % (13.2-15.2) 08/07/17 04:02 Plt Count 125 K/mm3 (140-440) L 08/07/17 04:02 Lymph % (Auto) 11.0 % (13.4-35.0) L 08/07/17 04:02 [place] % (Auto) 7.3 % (0.0-7.3) 08/07/17 04:02 Eos % (Auto) 1.9 % (0.0-4.3) 08/07/17 04:02 Baso % (Auto) 0.7 % (0.0-1.8) 08/07/17 04:02 Lymph # 0.7 K/mm3 (1.2-5.4) L 08/07/17 04:02 [place] # 0.5 K/mm3 (0.0-0.8) 08/07/17 04:02 Eos # 0.1 K/mm3 (0.0-0.4) 08/07/17 04:02 Baso # 0.0 K/mm3 (0.0-0.1) 08/07/17 04:02 Seg Neutrophils % 79.1 % (40.0-70.0) H 08/07/17 04:02 Seg Neutrophils # 5.2 K/mm3 (1.8-7.7) 08/07/17 04:02 Sodium 138 mmol/L (137-145) 08/08/17 07:20 Potassium 3.6 mmol/L (3.6-5.0) 08/08/17 07:20 Chloride 104.1 mmol/L (98-107) 08/08/17 07:20 Carbon Dioxide 24 mmol/L (22-30) 08/08/17 07:20 Anion Gap 14 mmol/L 08/08/17 07:20 BUN 11 mg/dL (7-17) 08/08/17 07:20 Creatinine 0.8 mg/dL (0.7-1.2) 08/08/17 07:20 Estimated GFR > 60 ml/min 08/08/17 07:20 BUN/Creatinine Ratio 14 % 08/08/17 07:20 Glucose 113 mg/dL (65-100) H 08/08/17 07:20 Calcium 7.9 mg/dL (8.4-10.2) L 08/08/17 07:20 Total Bilirubin 1.20 mg/dL (0.1-1.2) 08/08/17 07:20 Direct Bilirubin 0.5 mg/dL (0-0.2) H 08/08/17 07:20 Indirect Bilirubin 0.7 mg/dL 08/08/17 07:20 AST 20 units/L (5-40) 08/08/17 07:20 ALT 84 units/L (7-56) H 08/08/17 07:20 Alkaline Phosphatase 123 units/L (35-129) 08/08/17 07:20 Total Protein 5.4 g/dL (6.3-8.2) L 08/08/17 07:20 Albumin 2.9 g/dL (3.9-5) L 08/08/17 07:20 Albumin/Globulin Ratio 1.2 % 08/08/17 07:20 Triglycerides 100 mg/dL (2-149) 08/06/17 03:34 Amylase 118 units/L (27-131) 08/07/17 04:02 Lipase 55 units/L (13-60) 08/09/17 04:00 Urine Color [place] (Yellow) 08/04/17 20:08 Urine Turbidity Clear (Clear) 08/04/17 20:08 Urine pH 5.0 (5.0-7.0) 08/04/17 20:08 Ur Specific [place] 1.013 (1.003-1.030) 08/04/17 20:08 Urine Protein 100 mg/dl mg/dL (Negative) 08/04/17 20:08 Urine Glucose (UA) 50 mg/dL (Negative) 08/04/17 20:08 Urine Ketones Neg mg/dL (Negative) 08/04/17 20:08 Urine Blood Sm (Negative) 08/04/17 20:08 Urine Nitrite Neg (Negative) 08/04/17 20:08 Urine Bilirubin Neg (Negative) 08/04/17 20:08 Urine Urobilinogen 4.0 mg/dL (<2.0) 08/04/17 20:08 Ur Leukocyte Esterase Neg (Negative) 08/04/17 20:08 Urine WBC (Auto) 7.0 /HPF (0.0-6.0) H 08/04/17 20:08 Urine RBC (Auto) 2.0 /HPF (0.0-6.0) 08/04/17 20:08 U Epithel Cells (Auto) 5.0 /HPF (0-13.0) 08/04/17 20:08 Urine Bacteria (Auto) 4+ /HPF (Negative) 08/04/17 20:08 Urine Mucus Few /HPF 08/04/17 20:08
[2017-08-09] MEDS ORDERED: ZESTRIL PO SCH (11:00)
--- NOTE | 2017-08-09 11:12 | Discharge Summary ---
Providers - Providers Date of Admission: 08/05/17 03:02 Date of discharge: 08/09/17 Attending physician: KENDRA EVANS 08/05/17 09:10 Consult to Cardiology [CONS] Routine Consulting Provider: EBER ANDERSON Reason For Exam: hx afib, preop risk assessment Consult to Physician [CONS] Routine Consulting Provider: WALTER SPENCER Reason For Exam: pancreatitis, likely gallstone Place consult to:: Notified:: Phone number called:: [phone] Was contact made?: Yes If yes, spoke with:: NAHED Time called:: 10:34 Comment:: ultrasound pending.(DADA) 08/05/17 09:23 Midline [Consult to PICC Line RN] [CONS] Routine Reason For Exam: inadequate IV access, hard stick for labs Type Line:: PICC 08/06/17 07:42 Physical Therapy Evaluation and Treat [CONS] Routine Comment: Reason For Exam: deconditioned Hospitalization Condition: Stable Disposition: DC-01 TO HOME OR SELFCARE Core Measure Documentation - Palliative Care Palliative Care/ Comfort Measures: Not Applicable - Core Measures Any of the following diagnoses?: none Exam - Constitutional Vitals: Temp Pulse Resp BP Pulse Ox 98.5 F 75 18 176/56 99 08/09/17 07:30 08/09/17 09:47 08/09/17 08:00 08/09/17 09:47 08/09/17 04:08 General appearance: Present: no acute distress, well-nourished, obese - EENT Eyes: Present: PERRL, EOM intact Plan Activity: no restrictions Diet: other (cardiac diet) Additional Instructions: If you have severe abdominal pain /nausea and vomiting , contact MD or go to ER Follow up with: PRIMARY CARE, [Referring] - 3-5 Days JOSE E WU DO [Staff Physician] - 7 Days Prescriptions: HYDROcodone/APAP 10-325 [[place] 10-325 mg TAB] 1 tab PO QDAY #7 tablet
--- NOTE | 2017-08-09 11:19 | Progress Note ---
Assessment and Plan 71-year-old female s/p laparoscopic cholecystectomy with intraoperative cholangiogram POD1 for gallstone pancreatitis 1. reg diet 2. dc IVF 3. PO pain control 4. OOB 5. DVT ppx 6. OK to dc from surgery standpoint, february f/u in surgery office in 2 weeks D/W Dr. Linder Subjective Date of service: 08/09/17 Narrative: Patient seen and examined. No acute complaints. No overnight events. Tolerating a diet. Pain is controlled Objective Vital Signs - 12hr 08/09/17 08/09/17 08/09/17 04:08 07:30 08:00 Temperature 97.7 F 98.5 F Pulse Rate 64 69 Respiratory 20 18 18 Rate Blood Pressure Blood Pressure 155/74 153/63 [Right] O2 Sat by Pulse 99 Oximetry 08/09/17 09:47 Temperature Pulse Rate 75 Respiratory Rate Blood Pressure 176/56 Blood Pressure [Right] O2 Sat by Pulse Oximetry - General physical appearance Narrative Exam: General: Awake, alert, oriented 3. No apparent distress Abdomen: Soft, nontender, nondistended. Incisions are clean dry and intact - Labs 08/07/17 04:02 08/08/17 07:20
[2017-08-09 11:50] VITALS: BP 140/70
== END 2017-08-09 12:18 | disposition home or self-care (01) | DRG 417 ==
LOC: ED 18:08 → CC2 08-05 03:02
PROVIDERS: ADMIT Internal Medicine; ATTEND Internal Medicine
PROC: 02HV33Z Insertion of Infusion Device into Superior Vena Cava, Percutaneous Approach (ICD-10-PCS; 2017-08-05)
PROC: B5181ZA Fluoroscopy of Superior Vena Cava using Low Osmolar Contrast, Guidance (ICD-10-PCS; 2017-08-05)
PROC: 0FT44ZZ Resection of Gallbladder, Percutaneous Endoscopic Approach (ICD-10-PCS; principal; 2017-08-08)
PROC: BF141ZZ Fluoroscopy of Gallbladder, Bile Ducts and Pancreatic Ducts using Low Osmolar Contrast (ICD-10-PCS; 2017-08-08)
DX: K85.10 Biliary acute pancreatitis without necrosis or infection (principal); N17.0 Acute kidney failure with tubular necrosis; K81.0 Acute cholecystitis; Z68.41 Body mass index [BMI] 40.0-44.9, adult; F41.9 Anxiety disorder, unspecified; F32.9 Major depressive disorder, single episode, unspecified; M32.9 Systemic lupus erythematosus, unspecified; I35.0 Nonrheumatic aortic (valve) stenosis; I48.0 Paroxysmal atrial fibrillation; E66.01 Morbid (severe) obesity due to excess calories; Z88.8 Allergy status to other drugs, medicaments and biological substances; Z96.619 Presence of unspecified artificial shoulder joint; Z96.649 Presence of unspecified artificial hip joint; I12.9 Hypertensive chronic kidney disease with stage 1 through stage 4 chronic kidney disease, or unspecified chronic kidney disease; N18.9 Chronic kidney disease, unspecified; Z82.49 Family history of ischemic heart disease and other diseases of the circulatory system; I25.10 Atherosclerotic heart disease of native coronary artery without angina pectoris; G47.33 Obstructive sleep apnea (adult) (pediatric); Z98.51 Tubal ligation status; K21.9 Gastro-esophageal reflux disease without esophagitis
CPT/HCPCS: 36415; 71010; 74176; 74300; 76705; 80053; 81001; 82150; 82248; 83690; 84478; 85025; 88304; 93005; 93010; 94660; 96361; 96365; 96367; 96375; 96376; A4217; J0360; J0696; J1100; J1170; J1644; J1956; J2060; J2250; J2270; J2405; J2543; J2704; J2710; J3010; J3480; J7030; J7050; Q0162; Q9967